=== PATIENT | male | born 1950 | race African-American/Black ===

== ENCOUNTER 2016-04-03 23:13 | Inpatient (IN) | payer MEDICAID ==
[~2016-04-03] VITALS: Ht 175.3 cm; Wt 63.1 kg
[~2016-04-03 23:13] MED LIST: ALBUAER3 IN; FOLI1TAB6 PO; LEVE500T22 PO; METF-314 PO; NAPR-604 PO; PHE100C PO
[2016-04-03] MEDS ORDERED: LORazepam 2MG/ML-1ML VIAL ONE (23:15)
[2016-04-03] MEDS ORDERED: diphenhdrAMINE HCL 50 MG/1 ML VL ONE (23:40)
[2016-04-03] MEDS ORDERED: DIAZEPAM 5 MG/ML 2ML SYRG ONE (23:45)
[2016-04-03 23:56] LABS: Basophils # (auto) 0.1 uL; Basophils % (auto) 1.2 % (0.0-2.0); Eosinophils # (auto) 0.2 uL; Eosinophils % (auto) 2.1 % (0.0-7.0); Hematocrit 42.6 % (41.0-53.0); Hemoglobin 13.2 g/dL (13.5-17.5); Lymphocytes # (auto) 4.4 uL; Mean Corpuscular Hemoglobin 30.5 pg (28.0-32.0); Mean Corpuscular Volume 98.3 fL (80.0-100.0); Mean Platelet Volume 10.3 fL (7.4-10.4); Monocytes # (auto) 0.5 uL; Monocytes % (auto) 5.3 % (0.0-12.0); Neutrophils # (auto) 4.4 uL; Neutrophils % (auto) 45.4 % (37.0-80.0); Platelet Count (auto) 210 10^3/uL (140-450); Red Cell Distribution Width 12.5 % (11.6-16.0); White Blood Cell 9.6 10^3/uL (4.4-10.8)
[2016-04-03] MEDS ORDERED: SODIUM CHLORIDE 0.9% 250 ML IV ONE (23:58)
[2016-04-03] MEDS ORDERED: SODIUM CHLORIDE 0.9% 1,000 ML IV ONE (23:58)
[2016-04-04] MEDS ORDERED: diphenhdrAMINE HCL 50 MG/1 ML VL IV ONE
[2016-04-04] MEDS ORDERED: InsuLIN REG 1unit/0.01ml Soln (100units/ml) IV ONE
[2016-04-04] MEDS ORDERED: LORazepam 2MG/ML-1ML VIAL IV ONE
[2016-04-04 00:11] LABS: Albumin 3.3 g/dL (3.4-5.0); Calcium 8.1 mg/dL (8.5-10.1); Potassium 3.2 mmol/L (3.5-5.1)
[2016-04-04 00:15] LABS: BUN/Creatinine Ratio 4.1; Bilirubin, Total 0.2 mg/dL (0.2-1.0); Total Protein 7.7 g/dL (6.4-8.2)
[2016-04-04] MEDS ORDERED: HALOPERIDOL LACTATE 5 MG/ML INJ VIAL ONE (00:17)
[2016-04-04] MEDS ORDERED: HALOPERIDOL LACTATE 5 MG/ML INJ VIAL IM ONE ×2 (00:30)
[2016-04-04] MEDS ORDERED: DIAZEPAM 5 MG/ML 2ML SYRG IV ONE (01:00)
[2016-04-04 01:36] LABS: Urine RBC None Seen /hpf (0 - 3)
[2016-04-04 01:49] LABS: Urine Bilirubin Negative (Negative); Urine Blood TRACE /uL (Negative); Urine Color Colorless (Yellow); Urine Ketone Negative (Negative); Urine Nitrite Negative (Negative); Urine Urobilinogen Normal (Negative); Urine pH 6.5 (5.0-8.0)
[2016-04-04 01:50] LABS: Urine Glucose 4+ mg/dL (Normal)
[2016-04-04] MEDS ORDERED: POTASSIUM CHL 20MEQ/100ML 100 ML IV ONE (02:15)
[2016-04-04] MEDS: ACCU-CHEK COMFORT CURVE STRIP VI SCH ×5 (03:10→19:32)
[2016-04-04] MEDS ORDERED: ACETAMINOPHEN 325 MG TAB PO PRN (04:00)
[2016-04-04] MEDS ORDERED: ONDANSETRON HCL 4 MG/2 ML VIAL IV PRN (04:00)
[2016-04-04] MEDS ORDERED: LORazepam 0.5 MG TAB PO PRN (04:00)
[2016-04-04] MEDS ORDERED: HYDROcodone-ACET 5/325MG TAB PO PRN (04:00)
[2016-04-04] MEDS ORDERED: DEXTROSE (50%) 50ML SYRG IV PRN (04:00)
[2016-04-04] MEDS ORDERED: ALBUTEROL SULF 2.5 MG/0.5ML(0.5%) NEB SOLN NEB PRN (04:00)
[2016-04-04] MEDS: SODIUM CHLORIDE 0.9% 1,000 ML IV SCH ×2 (04:32→10:52)
[2016-04-04] MEDS: InsuLIN REG 1unit/0.01ml Soln (100units/ml) SC SCH ×5 (05:05→19:50)
[2016-04-04] MEDS: PHENYTOIN SODIUM 100 MG CAP PO SCH ×3 (06:00→22:16)
[2016-04-04 06:50] VITALS: BP 126/66
[2016-04-04] MEDS ORDERED: IPRAAER6 IN (08:52)
[2016-04-04] MEDS ORDERED: METF-489 PO (08:52)
[2016-04-04] MEDS ORDERED: BENA10TA3 PO (08:52)
[2016-04-04] MEDS ORDERED: LEVETIRACETAM 500 MG TAB PO SCH (10:00)
[2016-04-04] MEDS: ENOXAPARIN SOD 40 MG/0.4 ML SYRINGE SC SCH (10:52)
[2016-04-04] MEDS: FOLIC ACID 1 MG TAB PO SCH (10:52)
[2016-04-04] MEDS: FAMOTIDINE 20 MG TAB PO SCH ×2 (10:52→22:16)
[2016-04-04 12:24] LABS: BUN/Creatinine Ratio 5.6; Calcium 7.5 mg/dL (8.5-10.1); Potassium 3.3 mmol/L (3.5-5.1)
[2016-04-04 12:30] VITALS: BP 117/75
[2016-04-04 13:00] VITALS: BP 117/75
[2016-04-04 17:00] VITALS: BP 125/76
[2016-04-04] MEDS ORDERED: PHENYTOIN DILANTIN IV ONE (19:00)
[2016-04-04] MEDS ORDERED: SODIUM CHL 0.9% IV ONE (19:00)
[2016-04-04 21:32] LABS: Temperature: 21.4 C (20.0-25.0)
[2016-04-04] MEDS: POTASSIUM CHL 20 Meq TABLET PO SCH (22:15)
[2016-04-05] MEDS: ACCU-CHEK COMFORT CURVE STRIP VI SCH ×7 (00:13→23:38)
[2016-04-05] MEDS: InsuLIN REG 1unit/0.01ml Soln (100units/ml) SC SCH ×7 (04:45→23:41)
[2016-04-05 06:21] LABS: Basophils # (auto) 0.1 uL; Basophils % (auto) 0.7 % (0.0-2.0); Eosinophils # (auto) 0.3 uL; Eosinophils % (auto) 1.9 % (0.0-7.0); Hematocrit 40.5 % (41.0-53.0); Hemoglobin 12.7 g/dL (13.5-17.5); Lymphocytes # (auto) 5.2 uL; Lymphocytes % (auto) 38.5 % (10.0-50.0); Mean Corpuscular Hemoglobin 30.4 pg (28.0-32.0); Mean Corpuscular Hgb Conc. 31.4 g/dL (32.0-36.0); Mean Corpuscular Volume 96.8 fL (80.0-100.0); Mean Platelet Volume 10.6 fL (7.4-10.4); Monocytes # (auto) 0.6 uL; Monocytes % (auto) 4.4 % (0.0-12.0); Neutrophils # (auto) 7.4 uL; Neutrophils % (auto) 54.5 % (37.0-80.0); Platelet Count (auto) 243 10^3/uL (140-450); Red Cell Distribution Width 13.5 % (11.6-16.0); SUSPECT VIEW TRANSMISSION; White Blood Cell 13.5 10^3/uL (4.4-10.8)
[2016-04-05 06:56] LABS: Albumin 3.2 g/dL (3.4-5.0); BUN/Creatinine Ratio 4.8; Bilirubin, Total 0.2 mg/dL (0.2-1.0); Calcium 8.2 mg/dL (8.5-10.1); Total Protein 7.8 g/dL (6.4-8.2)
[2016-04-05 07:03] LABS: Potassium 2.9 mmol/L (3.5-5.1)
[2016-04-05] MEDS ORDERED: HALOPERIDOL LACTATE 5 MG/ML INJ VIAL IM PRN ×2 (09:00→19:15)
[2016-04-05] MEDS: ENOXAPARIN SOD 40 MG/0.4 ML SYRINGE SC SCH (10:38)
[2016-04-05] MEDS: FOLIC ACID 1 MG TAB PO SCH (10:39)
[2016-04-05] MEDS: POTASSIUM CHL 20 Meq TABLET PO SCH ×2 (10:39→22:04)
[2016-04-05] MEDS: FAMOTIDINE 20 MG TAB PO SCH ×2 (10:39→22:04)
[2016-04-05] MEDS: PHENYTOIN SODIUM 100 MG CAP PO SCH ×2 (10:39→22:04)
[2016-04-05] MEDS: SODIUM CHLORIDE 0.9% 1,000 ML IV SCH (13:12)
[2016-04-05] MEDS ORDERED: HALOPERIDOL LACTATE 5 MG/ML INJ VIAL IM ONE (16:15)
[2016-04-05 22:00] VITALS: BP 169/75
[2016-04-06] MEDS: InsuLIN REG 1unit/0.01ml Soln (100units/ml) SC SCH ×3 (04:00→11:19)
[2016-04-06] MEDS: ACCU-CHEK COMFORT CURVE STRIP VI SCH ×3 (04:15→11:18)
[2016-04-06 05:00] VITALS: BP 149/89
[2016-04-06] MEDS: SODIUM CHLORIDE 0.9% 1,000 ML IV SCH (05:52)
[2016-04-06 06:05] LABS: Basophils # (auto) 0 uL; Basophils % (auto) 0.4 % (0.0-2.0); Eosinophils # (auto) 0.2 uL; Eosinophils % (auto) 1.6 % (0.0-7.0); Hematocrit 41.2 % (41.0-53.0); Hemoglobin 12.9 g/dL (13.5-17.5); Lymphocytes # (auto) 2.9 uL; Lymphocytes % (auto) 28.6 % (10.0-50.0); Mean Corpuscular Hemoglobin 29.9 pg (28.0-32.0); Mean Corpuscular Hgb Conc. 31.3 g/dL (32.0-36.0); Mean Corpuscular Volume 95.7 fL (80.0-100.0); Mean Platelet Volume 10.3 fL (7.4-10.4); Monocytes # (auto) 0.7 uL; Monocytes % (auto) 6.5 % (0.0-12.0); Neutrophils # (auto) 6.5 uL; Neutrophils % (auto) 62.9 % (37.0-80.0); Platelet Count (auto) 245 10^3/uL (140-450); Red Cell Distribution Width 13.4 % (11.6-16.0); SUSPECT VIEW TRANSMISSION; White Blood Cell 10.3 10^3/uL (4.4-10.8)
[2016-04-06 06:40] LABS: Potassium 3.4 mmol/L (3.5-5.1)
[2016-04-06 06:48] LABS: Albumin 3.1 g/dL (3.4-5.0); BUN/Creatinine Ratio 8.4; Calcium 8.4 mg/dL (8.5-10.1)
[2016-04-06 06:51] LABS: Bilirubin, Total 0.2 mg/dL (0.2-1.0); Total Protein 7.2 g/dL (6.4-8.2)
[2016-04-06 08:00] VITALS: BP 159/42
[2016-04-06] MEDS: ENOXAPARIN SOD 40 MG/0.4 ML SYRINGE SC SCH (10:16)
[2016-04-06] MEDS: PHENYTOIN SODIUM 100 MG CAP PO SCH (10:17)
[2016-04-06] MEDS: FOLIC ACID 1 MG TAB PO SCH (10:17)
[2016-04-06] MEDS: POTASSIUM CHL 20 Meq TABLET PO SCH (10:17)
[2016-04-06] MEDS: FAMOTIDINE 20 MG TAB PO SCH (10:17)
[2016-04-06] MEDS ORDERED: POTASSIUM CHL 20 Meq TABLET PO ONE (11:30)
[2016-04-06] MEDS ORDERED: BENAZEPRIL HCL 10 MG TAB PO SCH (12:00)
[2016-04-06 13:29] VITALS: BP 149/89
== END 2016-04-06 14:00 | disposition home or self-care (01) | DRG 53 ==
LOC: EDBD 23:13 → ER 23:18 → OVERFLOW 23:19 → WEST WING 04-04 12:23
PROVIDERS: ADMIT Nurse Practitioner; ATTEND Internal Medicine
DX: G40.909 Epilepsy, unspecified, not intractable, without status epilepticus (principal); E11.42 Type 2 diabetes mellitus with diabetic polyneuropathy; F03.90 Unspecified dementia, unspecified severity, without behavioral disturbance, psychotic disturbance, mood disturbance, and anxiety; E11.65 Type 2 diabetes mellitus with hyperglycemia; E87.8 Other disorders of electrolyte and fluid balance, not elsewhere classified; I10 Essential (primary) hypertension; E87.6 Hypokalemia; E86.0 Dehydration; F12.90 Cannabis use, unspecified, uncomplicated; F17.210 Nicotine dependence, cigarettes, uncomplicated; Z79.899 Other long term (current) drug therapy; Z91.19 Patient's noncompliance with other medical treatment and regimen; Z98.890 Other specified postprocedural states; Z84.89 Family history of other specified conditions; Z87.828 Personal history of other (healed) physical injury and trauma; Z79.84 Long term (current) use of oral hypoglycemic drugs; Z78.1 Physical restraint status
CPT/HCPCS: 36415; 36600; 70450; 71010; 80048; 80053; 80185; 81001; 82140; 82607; 82746; 82805; 82962; 83036; 84439; 84443; 85025; 93005; 94761; 96361; 96372; 96374; 96375; 97001; G0434; J1815; J3480

== ENCOUNTER 2016-05-07 11:00 | Observation (INO) | payer MEDICAID ==
[~2016-05-07] VITALS: Ht 175.3 cm; Wt 68.0 kg
[~2016-05-07 11:00] MED LIST changes: +BENA10TA3 PO; +IPRAAER6 IN; -METF-314 PO; +METF-489 PO
[2016-05-07 16:06] LABS: Basophils # (auto) 0.1 uL; Basophils % (auto) 0.7 % (0.0-2.0); Eosinophils # (auto) 0 uL; Eosinophils % (auto) 0.1 % (0.0-7.0); Hematocrit 44.3 % (41.0-53.0); Hemoglobin 14.6 g/dL (13.5-17.5); Lymphocytes # (auto) 1.3 uL; Lymphocytes % (auto) 8.8 % (10.0-50.0); Mean Corpuscular Hemoglobin 31.2 pg (28.0-32.0); Mean Corpuscular Hgb Conc. 32.9 g/dL (32.0-36.0); Mean Corpuscular Volume 94.8 fL (80.0-100.0); Monocytes # (auto) 0.4 uL; Monocytes % (auto) 2.8 % (0.0-12.0); Neutrophils # (auto) 13.1 uL; Neutrophils % (auto) 87.6 % (37.0-80.0); Platelet Count (auto) 197 10^3/uL (140-450); Red Cell Distribution Width 14.7 % (11.6-16.0); SUSPECT VIEW TRANSMISSION
[2016-05-07 16:16] LABS: Albumin 3.2 g/dL (3.4-5.0); BUN/Creatinine Ratio 19.8; Bilirubin, Total 0.3 mg/dL (0.2-1.0); Calcium 8.3 mg/dL (8.5-10.1); Potassium 4.5 mmol/L (3.5-5.1); Total Protein 8.1 g/dL (6.4-8.2)
[2016-05-08 07:35] VITALS: BP 142/84
[2016-05-08] MEDS ORDERED: PANTOPRAZOLE 40 MG TAB PO ONE (09:00)
[2016-05-08] MEDS ORDERED: cefTRIAXone W LIDOCAINE 1 GM IM IM ONE (09:00)
[2016-05-08 09:22] LABS: Urine Bilirubin Negative (Negative); Urine Color Yellow (Yellow); Urine Glucose Normal (Normal); Urine Ketone TRACE (Negative); Urine Nitrite Negative (Negative); Urine RBC 1 /hpf (0 - 3); Urine Squamous Epithelial Cell FEW /hpf (<5)
[2016-05-08 09:39] LABS: Urine Blood 1+ /uL (Negative)
== END 2016-05-08 09:09 | disposition home or self-care (01) | DRG 282 ==
LOC: ER 11:01 → UNDOADMOB 11:02 → OVERFLOW 11:02 → UNDODISOB 05-08 09:09 → ER 05-08 09:09
PROVIDERS: ADMIT Emergency Medicine; ATTEND Emergency Medicine
DX: K86.1 Other chronic pancreatitis (principal); F03.90 Unspecified dementia, unspecified severity, without behavioral disturbance, psychotic disturbance, mood disturbance, and anxiety; F17.210 Nicotine dependence, cigarettes, uncomplicated; E11.9 Type 2 diabetes mellitus without complications; I10 Essential (primary) hypertension; K29.30 Chronic superficial gastritis without bleeding; I70.8 Atherosclerosis of other arteries
CPT/HCPCS: 36415; 74176; 80053; 81001; 82962; 83690; 85025; 93005; 96372; 99285; G0378; J0696

== ENCOUNTER 2016-05-28 09:24 | Inpatient (IN) | payer MEDICAID ==
[~2016-05-28] VITALS: Ht 175.3 cm; Wt 55.3 kg
[2016-05-28] MEDS ORDERED: GLY5T PO (09:32)
[2016-05-28 10:02] LABS: Urine RBC None Seen /hpf (0 - 3)
[2016-05-28] MEDS ORDERED: SODIUM CHLORIDE 0.9% 1,000 ML IVB ONE (10:15)
[2016-05-28 10:18] LABS: Urine Bilirubin Negative (Negative); Urine Blood Negative /uL (Negative); Urine Color Yellow (Yellow); Urine Glucose Normal (Normal); Urine Granular Cast MANY /lpf (0); Urine Ketone 1+ (Negative); Urine Nitrite Negative (Negative); Urine Squamous Epithelial Cell FEW /hpf (<5); Urine Urobilinogen Normal (Negative); Urine pH 5.5 (5.0-8.0)
[2016-05-28 10:26] LABS: Basophils # (auto) 0 uL; Basophils % (auto) 0.5 % (0.0-2.0); Eosinophils # (auto) 0.1 uL; Eosinophils % (auto) 1.2 % (0.0-7.0); Hematocrit 41.3 % (41.0-53.0); Hemoglobin 13.8 g/dL (13.5-17.5); Lymphocytes # (auto) 2.6 uL; Lymphocytes % (auto) 28.9 % (10.0-50.0); Mean Corpuscular Hemoglobin 30.8 pg (28.0-32.0); Mean Corpuscular Hgb Conc. 33.3 g/dL (32.0-36.0); Mean Corpuscular Volume 92.5 fL (80.0-100.0); Mean Platelet Volume 8.6 fL (7.4-10.4); Monocytes # (auto) 0.4 uL; Neutrophils # (auto) 5.7 uL; Neutrophils % (auto) 64.4 % (37.0-80.0); Platelet Count (auto) 307 10^3/uL (140-450); Red Cell Distribution Width 15.3 % (11.6-16.0); White Blood Cell 8.9 10^3/uL (4.4-10.8)
[2016-05-28 10:45] LABS: Albumin 3.3 g/dL (3.4-5.0); BUN/Creatinine Ratio 25.1; Bilirubin, Total 0.4 mg/dL (0.2-1.0); Calcium 6.9 mg/dL (8.5-10.1); Magnesium 1.3 mg/dL (1.6-2.6); Total Protein 7.4 g/dL (6.4-8.2)
[2016-05-28] MEDS: MAGNESIUM SULFATE 1GM/100ML 100 ML IV SCH ×2 (11:54→13:00)
[2016-05-28] MEDS ORDERED: BENA20TA4 (14:21)
[2016-05-28] MEDS ORDERED: LEVE500T3 (14:21)
[2016-05-28] MEDS ORDERED: METF-316 (14:21)
[2016-05-28] MEDS ORDERED: GLYB5TAB8 (14:21)
[2016-05-28] MEDS ORDERED: ALBU18 IN (14:21)
[2016-05-28] MEDS ORDERED: PANT40T (14:21)
[2016-05-28] MEDS ORDERED: NAP500T (14:21)
[2016-05-28] MEDS ORDERED: NAPROXEN 500 MG TAB PO PRN (14:45)
[2016-05-28] MEDS ORDERED: LORazepam 2MG/ML-1ML VIAL IV PRN (14:45)
[2016-05-28] MEDS ORDERED: DEXTROSE (50%) 50ML SYRG IV PRN (14:45)
[2016-05-28] MEDS ORDERED: PANTOPRAZOLE 40 MG TAB PO ONE (15:00)
[2016-05-28] MEDS ORDERED: ACETAMINOPHEN 325 MG TAB PO PRN (15:00)
[2016-05-28] MEDS ORDERED: LORazepam 0.5 MG TAB PO PRN (15:00)
[2016-05-28] MEDS ORDERED: ZOLPIDEM TARTRATE 5 MG TAB PO PRN (15:00)
[2016-05-28] MEDS ORDERED: NITROGLYCERIN 0.4 MG SL TAB SL PRN ×2 (15:00)
[2016-05-28] MEDS ORDERED: PHENYTOIN SODIUM 100 MG CAP PO ONE (15:00)
[2016-05-28] MEDS ORDERED: ONDANSETRON HCL 4 MG/2 ML VIAL IV PRN (15:00)
[2016-05-28] MEDS ORDERED: ALUM & MAG HYDROX-SIMETH LIQ(MAALOX) 30 ML PO PRN (15:00)
[2016-05-28] MEDS ORDERED: MORPHINE SULF INJ 2 MG/ML SYRINGE 1ML IV PRN ×2 (15:00)
[2016-05-28] MEDS ORDERED: FOLIC ACID 1 MG TAB PO ONE (15:00)
[2016-05-28] MEDS ORDERED: ASPirin 81 mg TAB PO ONE (15:30)
[2016-05-28] MEDS: LEVETIRACETAM 500 MG TAB PO SCH ×2 (15:30→21:53)
[2016-05-28] MEDS ORDERED: CLOPIDOGREL BISULFATE 75 MG TAB PO ONE (15:30)
[2016-05-28] MEDS ORDERED: CARVEDILOL 3.125 MG TAB PO ONE (15:30)
[2016-05-28] MEDS ORDERED: DOCUSATE SOD 100 MG CAP PO ONE (15:30)
[2016-05-28 16:00] VITALS: BP 129/76
[2016-05-28] MEDS: ACCU-CHEK COMFORT CURVE STRIP VI SCH ×2 (17:00→21:54)
[2016-05-28] MEDS: InsuLIN REG 1unit/0.01ml Soln (100units/ml) SC SCH ×2 (17:00→21:54)
[2016-05-28] MEDS: glyBURIDE 5 MG TAB PO SCH (17:50)
[2016-05-28 20:00] VITALS: BP 103/69
[2016-05-28] MEDS: DEXTROSE 10% 1,000 ML IV SCH (20:05)
[2016-05-28] MEDS: CEPHALEXIN 250 MG CAP PO SCH (20:05)
[2016-05-28] MEDS: metroNIDAZOLE 500 MG TAB PO SCH (20:05)
[2016-05-28 20:32] LABS: B-Type Natriuretic Peptide 48.48 pg/mL (0-100); Temperature: 23.4 C (20.0-25.0)
[2016-05-28] MEDS: SODIUM CHLOR 0.9% PF (SALINE LOCK) 10ML VIAL IV SCH (21:52)
[2016-05-28] MEDS: PHENYTOIN SODIUM 100 MG CAP PO SCH (21:52)
[2016-05-28] MEDS: ATORVASTATIN 20 MG TAB PO SCH (21:53)
[2016-05-28] MEDS: CARVEDILOL 3.125 MG TAB PO SCH (21:54)
[2016-05-29] VITALS: BP 120/80
[2016-05-29 04:00] VITALS: BP 123/82
[2016-05-29] MEDS: CEPHALEXIN 250 MG CAP PO SCH ×4 (06:00→17:35)
[2016-05-29 06:46] LABS: Basophils # (auto) 0.1 uL; Basophils % (auto) 0.8 % (0.0-2.0); Eosinophils # (auto) 0.1 uL; Eosinophils % (auto) 1.4 % (0.0-7.0); Hematocrit 39.3 % (41.0-53.0); Lymphocytes # (auto) 2.9 uL; Mean Corpuscular Hemoglobin 30.5 pg (28.0-32.0); Mean Corpuscular Volume 92.4 fL (80.0-100.0); Mean Platelet Volume 9.2 fL (7.4-10.4); Monocytes # (auto) 0.4 uL; Monocytes % (auto) 5.2 % (0.0-12.0); Neutrophils # (auto) 4.1 uL; Neutrophils % (auto) 54.6 % (37.0-80.0); Platelet Count (auto) 262 10^3/uL (140-450); Red Cell Distribution Width 15.1 % (11.6-16.0); White Blood Cell 7.5 10^3/uL (4.4-10.8)
[2016-05-29] MEDS: PHENYTOIN SODIUM 100 MG CAP PO SCH ×3 (06:50→22:30)
[2016-05-29] MEDS: metroNIDAZOLE 500 MG TAB PO SCH ×4 (06:50→17:34)
[2016-05-29] MEDS: glyBURIDE 5 MG TAB PO SCH ×2 (06:50→17:34)
[2016-05-29] MEDS: SODIUM CHLOR 0.9% PF (SALINE LOCK) 10ML VIAL IV SCH ×3 (06:50→22:29)
[2016-05-29] MEDS: InsuLIN REG 1unit/0.01ml Soln (100units/ml) SC SCH ×4 (07:00→22:00)
[2016-05-29] MEDS: ACCU-CHEK COMFORT CURVE STRIP VI SCH ×4 (07:20→22:00)
[2016-05-29 07:22] LABS: BUN/Creatinine Ratio 25.7; Bilirubin, Total 0.3 mg/dL (0.2-1.0); Calcium 7.2 mg/dL (8.5-10.1); Magnesium 1.8 mg/dL (1.6-2.6); Potassium 5.1 mmol/L (3.5-5.1); Total Protein 6.8 g/dL (6.4-8.2)
[2016-05-29 07:50] VITALS: BP 127/85
[2016-05-29] MEDS: DOCUSATE SOD 100 MG CAP PO SCH (09:44)
[2016-05-29] MEDS: ENALAPRIL MALEATE 2.5 MG TAB PO SCH ×2 (09:49→22:31)
[2016-05-29] MEDS: PANTOPRAZOLE 40 MG TAB PO SCH (09:53)
[2016-05-29] MEDS: CARVEDILOL 3.125 MG TAB PO SCH ×2 (09:54→22:31)
[2016-05-29] MEDS: FOLIC ACID 1 MG TAB PO SCH (09:54)
[2016-05-29] MEDS: LEVETIRACETAM 500 MG TAB PO SCH ×2 (09:54→22:30)
[2016-05-29] MEDS: ASPirin 81 mg TAB PO SCH (09:54)
[2016-05-29] MEDS: CLOPIDOGREL BISULFATE 75 MG TAB PO SCH (09:54)
[2016-05-29] MEDS ORDERED: BENAZEPRIL HCL 10 MG TAB PO SCH ×2 (10:00)
[2016-05-29] MEDS ORDERED: ADENOSINE 47 MG in GIVE UN-DILUTED 0 ML IV ONE (10:45)
[2016-05-29] MEDS: DEXTROSE 10% 1,000 ML IV SCH (14:15)
[2016-05-29 16:00] VITALS: BP 126/85
[2016-05-29] MEDS: ATORVASTATIN 20 MG TAB PO SCH (22:30)
[2016-05-30] MEDS: metroNIDAZOLE 500 MG TAB PO SCH ×2 (00:37→06:04)
[2016-05-30] MEDS: CEPHALEXIN 250 MG CAP PO SCH ×2 (00:37→06:04)
[2016-05-30 05:28] VITALS: BP 120/75
[2016-05-30] MEDS: DEXTROSE 10% 1,000 ML IV SCH (06:02)
[2016-05-30] MEDS: SODIUM CHLOR 0.9% PF (SALINE LOCK) 10ML VIAL IV SCH ×3 (06:03→22:44)
[2016-05-30] MEDS: PHENYTOIN SODIUM 100 MG CAP PO SCH ×3 (06:03→22:44)
[2016-05-30 06:13] LABS: Basophils # (auto) 0.1 uL; Basophils % (auto) 0.8 % (0.0-2.0); Eosinophils # (auto) 0.1 uL; Eosinophils % (auto) 1.6 % (0.0-7.0); Hematocrit 40.1 % (41.0-53.0); Hemoglobin 13.2 g/dL (13.5-17.5); Lymphocytes # (auto) 3.2 uL; Lymphocytes % (auto) 43.8 % (10.0-50.0); Mean Corpuscular Hemoglobin 30.5 pg (28.0-32.0); Mean Corpuscular Hgb Conc. 32.9 g/dL (32.0-36.0); Mean Corpuscular Volume 92.7 fL (80.0-100.0); Mean Platelet Volume 8.9 fL (7.4-10.4); Monocytes # (auto) 0.5 uL; Monocytes % (auto) 6.7 % (0.0-12.0); Neutrophils # (auto) 3.4 uL; Neutrophils % (auto) 47.1 % (37.0-80.0); Platelet Count (auto) 260 10^3/uL (140-450); Red Cell Distribution Width 15.3 % (11.6-16.0); SUSPECT VIEW TRANSMISSION; White Blood Cell 7.3 10^3/uL (4.4-10.8)
[2016-05-30] MEDS: glyBURIDE 5 MG TAB PO SCH ×2 (06:37→18:00)
[2016-05-30] MEDS: ACCU-CHEK COMFORT CURVE STRIP VI SCH ×4 (06:37→22:00)
[2016-05-30] MEDS: InsuLIN REG 1unit/0.01ml Soln (100units/ml) SC SCH ×4 (06:37→22:00)
[2016-05-30 06:50] LABS: BUN/Creatinine Ratio 21.8; Bilirubin, Total 0.3 mg/dL (0.2-1.0); Calcium 7.8 mg/dL (8.5-10.1); Potassium 4.6 mmol/L (3.5-5.1); Total Protein 6.8 g/dL (6.4-8.2)
[2016-05-30 08:00] VITALS: BP 113/77
[2016-05-30] MEDS: DOCUSATE SOD 100 MG CAP PO SCH (09:46)
[2016-05-30] MEDS: PANTOPRAZOLE 40 MG TAB PO SCH ×2 (09:48→22:43)
[2016-05-30] MEDS: CLOPIDOGREL BISULFATE 75 MG TAB PO SCH (09:48)
[2016-05-30] MEDS: ASPirin 81 mg TAB PO SCH (09:48)
[2016-05-30] MEDS: LEVETIRACETAM 500 MG TAB PO SCH ×2 (09:48→22:44)
[2016-05-30] MEDS: FOLIC ACID 1 MG TAB PO SCH (09:48)
[2016-05-30] MEDS: ENALAPRIL MALEATE 2.5 MG TAB PO SCH ×2 (09:49→22:45)
[2016-05-30] MEDS: CARVEDILOL 3.125 MG TAB PO SCH ×2 (09:49→22:45)
[2016-05-30 12:00] VITALS: BP 112/76
[2016-05-30 16:00] VITALS: BP 125/84
[2016-05-30 20:00] VITALS: BP 113/73
[2016-05-30] MEDS: ATORVASTATIN 20 MG TAB PO SCH (22:44)
[2016-05-31 05:30] VITALS: BP 106/81
[2016-05-31 05:48] LABS: Basophils # (auto) 0.1 uL; Basophils % (auto) 0.9 % (0.0-2.0); Eosinophils # (auto) 0.1 uL; Hematocrit 38.3 % (41.0-53.0); Hemoglobin 12.5 g/dL (13.5-17.5); Lymphocytes # (auto) 3.4 uL; Lymphocytes % (auto) 46.4 % (10.0-50.0); Mean Corpuscular Hemoglobin 30.7 pg (28.0-32.0); Mean Corpuscular Hgb Conc. 32.6 g/dL (32.0-36.0); Mean Corpuscular Volume 94.2 fL (80.0-100.0); Mean Platelet Volume 8.9 fL (7.4-10.4); Monocytes # (auto) 0.4 uL; Monocytes % (auto) 6.1 % (0.0-12.0); Neutrophils # (auto) 3.2 uL; Neutrophils % (auto) 44.6 % (37.0-80.0); Platelet Count (auto) 229 10^3/uL (140-450); Red Cell Distribution Width 14.9 % (11.6-16.0); White Blood Cell 7.3 10^3/uL (4.4-10.8)
[2016-05-31] MEDS: SODIUM CHLOR 0.9% PF (SALINE LOCK) 10ML VIAL IV SCH ×3 (06:02→22:20)
[2016-05-31] MEDS: DEXTROSE 10% 1,000 ML IV SCH (06:02)
[2016-05-31] MEDS: PHENYTOIN SODIUM 100 MG CAP PO SCH ×3 (06:25→23:03)
[2016-05-31] MEDS: glyBURIDE 5 MG TAB PO SCH ×2 (06:25→18:00)
[2016-05-31] MEDS: InsuLIN REG 1unit/0.01ml Soln (100units/ml) SC SCH ×4 (06:25→23:04)
[2016-05-31] MEDS: ACCU-CHEK COMFORT CURVE STRIP VI SCH ×4 (06:26→23:04)
[2016-05-31] MEDS: DOCUSATE SOD 100 MG CAP PO SCH (08:58)
[2016-05-31] MEDS: CLOPIDOGREL BISULFATE 75 MG TAB PO SCH (08:58)
[2016-05-31] MEDS: ENALAPRIL MALEATE 2.5 MG TAB PO SCH ×2 (08:58→23:05)
[2016-05-31] MEDS: LEVETIRACETAM 500 MG TAB PO SCH ×2 (08:58→23:03)
[2016-05-31] MEDS: PANTOPRAZOLE 40 MG TAB PO SCH ×2 (08:59→23:03)
[2016-05-31 09:00] VITALS: BP 131/89
[2016-05-31] MEDS: CARVEDILOL 3.125 MG TAB PO SCH ×2 (09:00→23:03)
[2016-05-31] MEDS: ASPirin 81 mg TAB PO SCH (09:00)
[2016-05-31] MEDS: FOLIC ACID 1 MG TAB PO SCH (09:00)
[2016-05-31 13:00] VITALS: BP 112/85
[2016-05-31 16:48] VITALS: BP 117/83
[2016-05-31 22:00] VITALS: BP 109/71
[2016-05-31] MEDS: ATORVASTATIN 20 MG TAB PO SCH (23:03)
[2016-06-01] MEDS: DEXTROSE 10% 1,000 ML IV SCH ×2 (05:15→20:46)
[2016-06-01] MEDS: SODIUM CHLOR 0.9% PF (SALINE LOCK) 10ML VIAL IV SCH ×3 (05:15→20:32)
[2016-06-01] MEDS: PHENYTOIN SODIUM 100 MG CAP PO SCH ×3 (05:16→20:31)
[2016-06-01] MEDS: glyBURIDE 5 MG TAB PO SCH ×2 (05:16→18:45)
[2016-06-01] MEDS: InsuLIN REG 1unit/0.01ml Soln (100units/ml) SC SCH ×4 (05:17→20:42)
[2016-06-01] MEDS: ACCU-CHEK COMFORT CURVE STRIP VI SCH ×4 (05:18→20:42)
[2016-06-01 05:30] VITALS: BP 107/70
[2016-06-01 05:52] LABS: Basophils # (auto) 0 uL; Basophils % (auto) 0.6 % (0.0-2.0); Eosinophils # (auto) 0.2 uL; Eosinophils % (auto) 2.6 % (0.0-7.0); Hematocrit 37.5 % (41.0-53.0); Hemoglobin 12.2 g/dL (13.5-17.5); Lymphocytes # (auto) 3.9 uL; Lymphocytes % (auto) 47.8 % (10.0-50.0); Mean Corpuscular Hemoglobin 30.4 pg (28.0-32.0); Mean Corpuscular Hgb Conc. 32.5 g/dL (32.0-36.0); Mean Corpuscular Volume 93.7 fL (80.0-100.0); Mean Platelet Volume 9.4 fL (7.4-10.4); Monocytes # (auto) 0.4 uL; Monocytes % (auto) 5.4 % (0.0-12.0); Neutrophils # (auto) 3.5 uL; Neutrophils % (auto) 43.6 % (37.0-80.0); Platelet Count (auto) 210 10^3/uL (140-450); Red Cell Distribution Width 15.3 % (11.6-16.0); White Blood Cell 8.1 10^3/uL (4.4-10.8)
[2016-06-01 06:23] LABS: Albumin 2.9 g/dL (3.4-5.0); BUN/Creatinine Ratio 16.4; Bilirubin, Total 0.2 mg/dL (0.2-1.0); Calcium 7.7 mg/dL (8.5-10.1); Potassium 4.4 mmol/L (3.5-5.1); Total Protein 6.5 g/dL (6.4-8.2)
[2016-06-01 06:40] LABS: INR 1.36 (0.9-1.15); Prothrombin Time 14.7 sec (9.37-12.3)
[2016-06-01 09:00] VITALS: BP 104/71
[2016-06-01] MEDS: DOCUSATE SOD 100 MG CAP PO SCH ×2 (10:00→10:24)
[2016-06-01] MEDS: ENALAPRIL MALEATE 2.5 MG TAB PO SCH ×2 (10:00→20:31)
[2016-06-01] MEDS: FOLIC ACID 1 MG TAB PO SCH (10:24)
[2016-06-01] MEDS: LEVETIRACETAM 500 MG TAB PO SCH ×2 (10:24→20:31)
[2016-06-01] MEDS: CLOPIDOGREL BISULFATE 75 MG TAB PO SCH (10:25)
[2016-06-01] MEDS: PANTOPRAZOLE 40 MG TAB PO SCH ×2 (10:25→20:31)
[2016-06-01] MEDS: CARVEDILOL 3.125 MG TAB PO SCH ×2 (10:25→20:32)
[2016-06-01] MEDS: ASPirin 81 mg TAB PO SCH (10:26)
[2016-06-01] MEDS ORDERED: LIDOCAINE 2%HCL (LOCAL ANESTH.) INJ 20ML MDV ONE (12:33)
[2016-06-01] MEDS ORDERED: IODIXANOL 320MG/ML 100ML BTL IV ONE (12:33)
[2016-06-01 13:00] VITALS: BP 115/71
[2016-06-01] MEDS ORDERED: ANGIOMAX 250 MG VIAL IV ONE (15:32)
[2016-06-01] MEDS ORDERED: VERAPAMIL 2.5MG/ML INJ 2ML VIAL IV ONE (15:33)
[2016-06-01] MEDS ORDERED: MIDAZOLAM HCL 1MG/1ML-2 ML VIAL ONE (15:33)
[2016-06-01] MEDS ORDERED: fentaNYL CITRATE 100 MCG/2 ML VL ONE (15:33)
[2016-06-01] MEDS ORDERED: SODIUM CHL 0.9% 50 ML ONE (15:33)
[2016-06-01] MEDS ORDERED: CLOPIDOGREL BISULFATE 75 MG TAB PO ONE (17:15)
[2016-06-01] MEDS ORDERED: HYDROmorphone HCL 2 MG/ML VL IV ONE (17:15)
[2016-06-01] MEDS: ATORVASTATIN 20 MG TAB PO SCH (20:30)
[2016-06-01 21:33] VITALS: BP 124/78
[2016-06-02 04:42] VITALS: BP 104/69
[2016-06-02] MEDS: SODIUM CHLOR 0.9% PF (SALINE LOCK) 10ML VIAL IV SCH ×2 (06:00→14:00)
[2016-06-02] MEDS: PHENYTOIN SODIUM 100 MG CAP PO SCH ×2 (06:00→14:26)
[2016-06-02] MEDS: glyBURIDE 5 MG TAB PO SCH (06:04)
[2016-06-02] MEDS: ACCU-CHEK COMFORT CURVE STRIP VI SCH ×2 (06:04→11:37)
[2016-06-02] MEDS: InsuLIN REG 1unit/0.01ml Soln (100units/ml) SC SCH ×2 (06:51→11:37)
[2016-06-02 09:00] VITALS: BP 110/68
[2016-06-02] MEDS: DOCUSATE SOD 100 MG CAP PO SCH ×2 (10:00→10:33)
[2016-06-02] MEDS: FOLIC ACID 1 MG TAB PO SCH (10:33)
[2016-06-02] MEDS: ASPirin 81 mg TAB PO SCH (10:33)
[2016-06-02] MEDS: LEVETIRACETAM 500 MG TAB PO SCH (10:34)
[2016-06-02] MEDS: ENALAPRIL MALEATE 2.5 MG TAB PO SCH (10:34)
[2016-06-02] MEDS: PANTOPRAZOLE 40 MG TAB PO SCH (10:34)
[2016-06-02] MEDS: CLOPIDOGREL BISULFATE 75 MG TAB PO SCH (10:34)
[2016-06-02] MEDS: CARVEDILOL 3.125 MG TAB PO SCH (10:35)
[2016-06-02 13:00] VITALS: BP 118/73
[2016-06-02 13:27] VITALS: BP 110/68
== END 2016-06-02 18:32 | disposition home or self-care (01) | DRG 174 ==
LOC: ER 09:24 → TELE 09:25 → DOU IN ICU 16:35 → TELE-CENTR 05-30 23:45
PROVIDERS: ADMIT Internal Medicine; ATTEND Internal Medicine
PROC: 027035Z Dilation of Coronary Artery, One Artery with Two Drug-eluting Intraluminal Devices, Percutaneous Approach (ICD-10-PCS; principal; 2016-06-01)
PROC: 4A023N7 Measurement of Cardiac Sampling and Pressure, Left Heart, Percutaneous Approach (ICD-10-PCS; 2016-06-01)
PROC: B2111ZZ Fluoroscopy of Multiple Coronary Arteries using Low Osmolar Contrast (ICD-10-PCS; 2016-06-01)
PROC: B2151ZZ Fluoroscopy of Left Heart using Low Osmolar Contrast (ICD-10-PCS; 2016-06-01)
DX: I21.4 Non-ST elevation (NSTEMI) myocardial infarction (principal); N17.0 Acute kidney failure with tubular necrosis; I47.2 Ventricular tachycardia; E11.21 Type 2 diabetes mellitus with diabetic nephropathy; R13.10 Dysphagia, unspecified; E44.1 Mild protein-calorie malnutrition; F03.90 Unspecified dementia, unspecified severity, without behavioral disturbance, psychotic disturbance, mood disturbance, and anxiety; I13.10 Hypertensive heart and chronic kidney disease without heart failure, with stage 1 through stage 4 chronic kidney disease, or unspecified chronic kidney disease; E83.42 Hypomagnesemia; N18.3 Chronic kidney disease, stage 3 (moderate); G40.909 Epilepsy, unspecified, not intractable, without status epilepticus; J44.9 Chronic obstructive pulmonary disease, unspecified; E11.22 Type 2 diabetes mellitus with diabetic chronic kidney disease; E83.51 Hypocalcemia; F17.210 Nicotine dependence, cigarettes, uncomplicated; Z79.02 Long term (current) use of antithrombotics/antiplatelets; Z68.1 Body mass index [BMI] 19.9 or less, adult
CPT/HCPCS: 36415; 70450; 71020; 78452; 80053; 80061; 80320; 81001; 82962; 83036; 83735; 83880; 84443; 84484; 85025; 85610; 87081; 93005; 93017; 93306; 96361; 96365; 96366; 97001; 99152; C1874; G0434; J0153; J1815; J2250; Q9967

== ENCOUNTER 2016-07-06 15:04 | Inpatient (IN) | payer MEDICAID ==
[~2016-07-06] VITALS: Ht 177.8 cm; Wt 64.8 kg
[~2016-07-06 15:04] MED LIST changes: +ALBU18 IN; +BENA20TA4; +GLY5T PO; +GLYB5TAB8; +LEVE500T3; +METF-316; +NAP500T; +PANT40T
[2016-07-06 16:17] LABS: Basophils # (auto) 0 uL; Basophils % (auto) 0.3 % (0.0-2.0); Eosinophils # (auto) 0.1 uL; Eosinophils % (auto) 1.1 % (0.0-7.0); Hemoglobin 9.5 g/dL (13.5-17.5); Lymphocytes # (auto) 1.8 uL; Lymphocytes % (auto) 27.6 % (10.0-50.0); Mean Corpuscular Hgb Conc. 33.8 g/dL (32.0-36.0); Mean Corpuscular Volume 91.8 fL (80.0-100.0); Mean Platelet Volume 8.6 fL (7.4-10.4); Monocytes # (auto) 0.3 uL; Monocytes % (auto) 4.3 % (0.0-12.0); Neutrophils # (auto) 4.3 uL; Neutrophils % (auto) 66.7 % (37.0-80.0); Platelet Count (auto) 225 10^3/uL (140-450); Red Cell Distribution Width 16.3 % (11.6-16.0); White Blood Cell 6.4 10^3/uL (4.4-10.8)
[2016-07-06 16:24] LABS: Albumin 2.4 g/dL (3.4-5.0); Calcium 7.7 mg/dL (8.5-10.1)
[2016-07-06 16:26] LABS: BUN/Creatinine Ratio 31.9
[2016-07-06 16:30] LABS: Bilirubin, Total 0.3 mg/dL (0.2-1.0); Total Protein 6.2 g/dL (6.4-8.2)
[2016-07-06 16:39] LABS: Potassium 6.7 mmol/L (3.5-5.1)
[2016-07-06] MEDS ORDERED: SODIUM BICARBONATE 8.4% INJ 50ML SYRINGE IV ONE (16:45)
[2016-07-06] MEDS ORDERED: DEXTROSE (50%) 50ML SYRG IV ONE ×2 (16:45→23:45)
[2016-07-06] MEDS ORDERED: InsuLIN REG 1unit/0.01ml Soln (100units/ml) IV ONE ×2 (16:45→23:45)
[2016-07-06] MEDS ORDERED: ALBUTEROL SULF 2.5 MG/0.5ML(0.5%) NEB SOLN HHN ONE (16:45)
[2016-07-06] MEDS ORDERED: D5W/SOD CHLO 0.9% 1,000 ML IV ONE (16:45)
[2016-07-06] MEDS ORDERED: CALCIUM GLUC 4.65 MEQ/10ML 4.65 MEQ in SODIUM CHL 0.9% 50 ML IV ONE ×2 (16:45→23:45)
[2016-07-06] MEDS ORDERED: SODIUM POLYSTYRENE SULF 15GM/60ML SUSP PR ONE (16:45)
[2016-07-06] MEDS ORDERED: SODIUM CHLORIDE 0.9% 1,000 ML IV SCH (18:29)
[2016-07-06] MEDS ORDERED: MORPHINE SULF INJ 2 MG/ML SYRINGE 1ML IV PRN ×2 (18:30)
[2016-07-06] MEDS ORDERED: NITROGLYCERIN 0.4 MG SL TAB SL PRN (18:30)
[2016-07-06] MEDS ORDERED: DEXTROSE (50%) 50ML SYRG IV PRN (18:30)
[2016-07-06] MEDS ORDERED: HYDROcodone-ACET 5/325MG TAB PO PRN (18:30)
[2016-07-06] MEDS ORDERED: LORazepam 0.5 MG TAB PO PRN (18:30)
[2016-07-06] MEDS ORDERED: ACETAMINOPHEN 500 MG TAB PO PRN (18:30)
[2016-07-06] MEDS ORDERED: PROMETHAZINE HCL 25 MG/ML 1ML IV PRN (18:30)
[2016-07-06] MEDS ORDERED: LACTULOSE 20Gm/30ML SOLN PO PRN (18:30)
[2016-07-06] MEDS: PANTOPRAZOLE 40 MG TAB PO SCH (18:45)
[2016-07-06] MEDS: ENOXAPARIN SOD 30 MG/0.3 ML SYRINGE SC SCH (18:45)
[2016-07-06 21:30] LABS: BUN/Creatinine Ratio 30.6; Calcium 7.8 mg/dL (8.5-10.1)
[2016-07-06 21:33] LABS: Lactic Acid w/Reflex 3.2 mmol/L (0.4-2.0)
[2016-07-06 21:45] LABS: Potassium 5.8 mmol/L (3.5-5.1)
[2016-07-06] MEDS: ACCU-CHEK COMFORT CURVE STRIP VI SCH (22:00)
[2016-07-06 22:07] LABS: REFLEX LACTIC ACID YES OR NO YES
[2016-07-06] MEDS ORDERED: SODIUM POLYSTYRENE SULF 15GM/60ML SUSP PO ONE (23:45)
[2016-07-06] MEDS ORDERED: SODIUM BICARBONATE 8.4 % INJ 50ML VIAL IV ONE (23:45)
[2016-07-07] MEDS: ACCU-CHEK COMFORT CURVE STRIP VI SCH ×6 (01:31→21:13)
[2016-07-07] MEDS: D5W/SOD CHLO 0.9% 1,000 ML IV SCH ×4 (03:38→20:08)
[2016-07-07 04:18] LABS: Basophils # (auto) 0 uL; Basophils % (auto) 0.2 % (0.0-2.0); Eosinophils # (auto) 0.1 uL; Eosinophils % (auto) 1.2 % (0.0-7.0); Hematocrit 30.5 % (41.0-53.0); Hemoglobin 10.3 g/dL (13.5-17.5); Lymphocytes # (auto) 1.9 uL; Lymphocytes % (auto) 27.2 % (10.0-50.0); Mean Corpuscular Hemoglobin 31.1 pg (28.0-32.0); Mean Corpuscular Hgb Conc. 33.8 g/dL (32.0-36.0); Mean Corpuscular Volume 92.1 fL (80.0-100.0); Mean Platelet Volume 8.6 fL (7.4-10.4); Monocytes # (auto) 0.4 uL; Monocytes % (auto) 5.5 % (0.0-12.0); Neutrophils # (auto) 4.5 uL; Neutrophils % (auto) 65.9 % (37.0-80.0); Platelet Count (auto) 233 10^3/uL (140-450); Red Cell Distribution Width 16.4 % (11.6-16.0); White Blood Cell 6.9 10^3/uL (4.4-10.8)
[2016-07-07 04:37] LABS: Albumin 2.7 g/dL (3.4-5.0); BUN/Creatinine Ratio 31.5; Bilirubin, Total 0.3 mg/dL (0.2-1.0); Calcium 7.8 mg/dL (8.5-10.1); Potassium 4.8 mmol/L (3.5-5.1); Total Protein 6.4 g/dL (6.4-8.2)
[2016-07-07] MEDS: InsuLIN REG 1unit/0.01ml Soln (100units/ml) SC SCH ×5 (06:00→23:12)
[2016-07-07 08:30] VITALS: BP 126/75
[2016-07-07] MEDS: PANTOPRAZOLE 40 MG TAB PO SCH (10:45)
[2016-07-07 12:59] VITALS: BP 126/68
[2016-07-07 13:16] VITALS: BP 126/75
[2016-07-07 16:22] VITALS: BP 111/68
[2016-07-07] MEDS: ENOXAPARIN SOD 30 MG/0.3 ML SYRINGE SC SCH (17:50)
[2016-07-07 20:00] VITALS: BP 118/70
[2016-07-07] MEDS: TEMAZEPAM 15 MG CAP PO PRN (21:13)
[2016-07-07 22:00] VITALS: BP 118/70
[2016-07-08] VITALS (7 sets, daily range): BP systolic 118–127; BP diastolic 69–74
[2016-07-08] MEDS: ACCU-CHEK COMFORT CURVE STRIP VI SCH ×6 (02:00→21:36)
[2016-07-08] MEDS: D5W/SOD CHLO 0.9% 1,000 ML IV SCH (04:03)
[2016-07-08] MEDS: InsuLIN REG 1unit/0.01ml Soln (100units/ml) SC SCH ×4 (06:00→23:38)
[2016-07-08 06:17] LABS: BUN/Creatinine Ratio 29.7; Calcium 7.3 mg/dL (8.5-10.1); Potassium 4.7 mmol/L (3.5-5.1)
[2016-07-08] MEDS: PANTOPRAZOLE 40 MG TAB PO SCH (10:34)
[2016-07-08] MEDS: SODIUM BICARBONATE 50ML VIAL 50 ML in SOD CHL 0.45% 1,000 ML IV SCH ×2 (11:45→22:51)
[2016-07-08 13:25] LABS: Urine Bilirubin Negative (Negative); Urine Blood Negative /uL (Negative); Urine Color Yellow (Yellow); Urine Glucose Normal (Normal); Urine Ketone Negative (Negative); Urine Mucus FEW (None Seen); Urine Nitrite Negative (Negative); Urine RBC <1 /hpf (0 - 3); Urine Squamous Epithelial Cell FEW /hpf (<5); Urine Urobilinogen Normal (Negative)
[2016-07-08] MEDS ORDERED: VITAMINS A & D (TOPICAL) OINT 5GM TOP ONE (15:30)
[2016-07-08] MEDS: ALBUMIN 25% 100 ML IV SCH ×2 (16:42→21:36)
[2016-07-08] MEDS: ENOXAPARIN SOD 30 MG/0.3 ML SYRINGE SC SCH (18:10)
[2016-07-09] MEDS: ACCU-CHEK COMFORT CURVE STRIP VI SCH ×4 (02:00→18:00)
[2016-07-09] MEDS: ALBUMIN 25% 100 ML IV SCH (05:12)
[2016-07-09] MEDS: InsuLIN REG 1unit/0.01ml Soln (100units/ml) SC SCH ×3 (06:00→18:39)
[2016-07-09 06:39] VITALS: BP 118/66
[2016-07-09 06:57] LABS: Albumin 2.9 g/dL (3.4-5.0); BUN/Creatinine Ratio 25.2; Bilirubin, Total 0.2 mg/dL (0.2-1.0); Calcium 7.1 mg/dL (8.5-10.1); Potassium 4.7 mmol/L (3.5-5.1); Total Protein 5.7 g/dL (6.4-8.2)
[2016-07-09 08:00] VITALS: BP 118/66
[2016-07-09] MEDS: PANTOPRAZOLE 40 MG TAB PO SCH (10:46)
[2016-07-09] MEDS: SODIUM BICARBONATE 50ML VIAL 50 ML in SOD CHL 0.45% 1,000 ML IV SCH ×2 (11:03→19:15)
[2016-07-09 13:28] VITALS: BP 127/72
[2016-07-09 17:24] VITALS: BP 120/70
[2016-07-09] MEDS: ENOXAPARIN SOD 30 MG/0.3 ML SYRINGE SC SCH (18:35)
[2016-07-09 21:30] VITALS: BP 119/67
[2016-07-10] MEDS: ACCU-CHEK COMFORT CURVE STRIP VI SCH ×4 (00:12→18:13)
[2016-07-10] MEDS: TEMAZEPAM 15 MG CAP PO PRN (00:13)
[2016-07-10 04:49] VITALS: BP 127/72
[2016-07-10] MEDS: InsuLIN REG 1unit/0.01ml Soln (100units/ml) SC SCH ×4 (06:00→18:00)
[2016-07-10] MEDS: SODIUM BICARBONATE 50ML VIAL 50 ML in SOD CHL 0.45% 1,000 ML IV SCH ×3 (06:19→20:49)
[2016-07-10 06:27] LABS: Potassium 4.5 mmol/L (3.5-5.1)
[2016-07-10 06:44] LABS: Albumin 2.6 g/dL (3.4-5.0); BUN/Creatinine Ratio 22.8; Bilirubin, Total 0.3 mg/dL (0.2-1.0); Calcium 7.2 mg/dL (8.5-10.1); Total Protein 5.5 g/dL (6.4-8.2)
[2016-07-10 08:00] VITALS: BP 136/68
[2016-07-10 08:31] VITALS: BP 136/68
[2016-07-10] MEDS: PANTOPRAZOLE 40 MG TAB PO SCH (10:03)
[2016-07-10 13:00] VITALS: BP 143/87
[2016-07-10 17:00] VITALS: BP 126/79
[2016-07-10] MEDS: ENOXAPARIN SOD 30 MG/0.3 ML SYRINGE SC SCH (18:13)
[2016-07-10] MEDS: PRO-STAT 64 30ML PO SCH (18:14)
[2016-07-10] MEDS: PHENYTOIN SODIUM 100 MG CAP PO SCH (21:39)
[2016-07-10 22:00] VITALS: BP 134/74
[2016-07-11 05:00] VITALS: BP 122/69
[2016-07-11] MEDS: SODIUM BICARBONATE 50ML VIAL 50 ML in SOD CHL 0.45% 1,000 ML IV SCH (05:36)
[2016-07-11] MEDS: PHENYTOIN SODIUM 100 MG CAP PO SCH ×3 (05:45→22:14)
[2016-07-11] MEDS: ACCU-CHEK COMFORT CURVE STRIP VI SCH ×4 (05:59→18:00)
[2016-07-11] MEDS: InsuLIN REG 1unit/0.01ml Soln (100units/ml) SC SCH ×4 (05:59→18:00)
[2016-07-11 07:16] LABS: Calcium 7.2 mg/dL (8.5-10.1); Potassium 4.3 mmol/L (3.5-5.1)
[2016-07-11 07:22] LABS: Albumin 2.2 g/dL (3.4-5.0); BUN/Creatinine Ratio 22.8; Bilirubin, Total 0.1 mg/dL (0.2-1.0); Total Protein 5.1 g/dL (6.4-8.2)
[2016-07-11 08:00] VITALS: BP 117/69
[2016-07-11] MEDS: PRO-STAT 64 30ML PO SCH ×2 (08:00→18:00)
[2016-07-11 09:00] VITALS: BP 117/69
[2016-07-11] MEDS: PANTOPRAZOLE 40 MG TAB PO SCH (09:40)
[2016-07-11] MEDS: SODIUM BICARBONATE 50ML VIAL 50 ML in D5W/SOD CHL 0.45% 1,000 ML IV SCH ×2 (11:28→22:15)
[2016-07-11] MEDS: B-COMPLEX W/ C & FOLIC ACID(NEPHROVITE TAB) PO SCH (11:28)
[2016-07-11] MEDS ORDERED: LORazepam 2MG/ML-1ML VIAL IV PRN (16:15)
[2016-07-11 16:49] LABS: Temperature: 23.9 C (20.0-25.0)
[2016-07-11] MEDS: ENOXAPARIN SOD 30 MG/0.3 ML SYRINGE SC SCH (18:37)
[2016-07-11 20:00] VITALS: BP 129/71
[2016-07-11 22:00] VITALS: BP 129/71
[2016-07-12] VITALS (7 sets, daily range): BP systolic 108–126; BP diastolic 65–69
[2016-07-12] MEDS: ACCU-CHEK COMFORT CURVE STRIP VI SCH ×5 (00:11→23:30)
[2016-07-12] MEDS: InsuLIN REG 1unit/0.01ml Soln (100units/ml) SC SCH ×4 (00:11→18:00)
[2016-07-12] MEDS: SODIUM BICARBONATE 50ML VIAL 50 ML in D5W/SOD CHL 0.45% 1,000 ML IV SCH ×3 (04:31→23:18)
[2016-07-12] MEDS: PHENYTOIN SODIUM 100 MG CAP PO SCH ×3 (05:32→21:39)
[2016-07-12 06:48] LABS: Albumin 2.2 g/dL (3.4-5.0)
[2016-07-12 06:51] LABS: BUN/Creatinine Ratio 24.6; Bilirubin, Total 0.2 mg/dL (0.2-1.0); Total Protein 5.4 g/dL (6.4-8.2)
[2016-07-12] MEDS ORDERED: CYANOCOBALAMIN (B-12) 1000 MCG/1 ML VIAL IM ONE (09:00)
[2016-07-12] MEDS: CYANOCOBALAMIN 500 MCG TAB PO SCH (10:00)
[2016-07-12] MEDS: PANTOPRAZOLE 40 MG TAB PO SCH (11:04)
[2016-07-12] MEDS: B-COMPLEX W/ C & FOLIC ACID(NEPHROVITE TAB) PO SCH (11:04)
[2016-07-12 14:53] LABS: BUN/Creatinine Ratio 23.6; Calcium 7.2 mg/dL (8.5-10.1)
[2016-07-12] MEDS: PRO-STAT 64 30ML PO SCH ×2 (16:15→18:00)
[2016-07-13 05:00] VITALS: BP 121/70
[2016-07-13] MEDS: SODIUM BICARBONATE 50ML VIAL 50 ML in D5W/SOD CHL 0.45% 1,000 ML IV SCH ×3 (05:24→20:23)
[2016-07-13] MEDS: InsuLIN REG 1unit/0.01ml Soln (100units/ml) SC SCH ×4 (05:26→18:21)
[2016-07-13] MEDS: PHENYTOIN SODIUM 100 MG CAP PO SCH ×3 (05:26→22:04)
[2016-07-13] MEDS: ACCU-CHEK COMFORT CURVE STRIP VI SCH ×3 (05:27→18:21)
[2016-07-13 07:27] LABS: Albumin 2.5 g/dL (3.4-5.0); BUN/Creatinine Ratio 26.9; Bilirubin, Total 0.2 mg/dL (0.2-1.0); Calcium 7.1 mg/dL (8.5-10.1); Potassium 3.9 mmol/L (3.5-5.1); Total Protein 5.8 g/dL (6.4-8.2)
[2016-07-13] MEDS: B-COMPLEX W/ C & FOLIC ACID(NEPHROVITE TAB) PO SCH (09:44)
[2016-07-13] MEDS: PANTOPRAZOLE 40 MG TAB PO SCH (09:44)
[2016-07-13] MEDS: CYANOCOBALAMIN 500 MCG TAB PO SCH (09:44)
[2016-07-13] MEDS ORDERED: ONDANSETRON HCL 4 MG/2 ML VIAL IV PRN (11:15)
[2016-07-13 13:00] VITALS: BP 138/66
[2016-07-13] MEDS: PRO-STAT 64 30ML PO SCH (14:47)
[2016-07-13 16:37] VITALS: BP 135/80
[2016-07-13] MEDS: ENOXAPARIN SOD 30 MG/0.3 ML SYRINGE SC SCH ×2 (18:21→18:33)
[2016-07-13 22:00] VITALS: BP 131/76
[2016-07-13] MEDS: Suplena 8 ounce PO SCH (22:00)
[2016-07-14] MEDS: InsuLIN REG 1unit/0.01ml Soln (100units/ml) SC SCH ×4 (00:28→17:45)
[2016-07-14] MEDS: ACCU-CHEK COMFORT CURVE STRIP VI SCH ×4 (00:28→17:46)
[2016-07-14 04:00] VITALS: BP 127/64
[2016-07-14] MEDS: SODIUM BICARBONATE 50ML VIAL 50 ML in D5W/SOD CHL 0.45% 1,000 ML IV SCH ×3 (05:48→22:54)
[2016-07-14] MEDS: PHENYTOIN SODIUM 100 MG CAP PO SCH ×3 (05:48→21:19)
[2016-07-14 06:39] LABS: Albumin 2.2 g/dL (3.4-5.0); Calcium 7.1 mg/dL (8.5-10.1); Potassium 4.2 mmol/L (3.5-5.1)
[2016-07-14 06:48] LABS: BUN/Creatinine Ratio 23.6; Bilirubin, Total 0.2 mg/dL (0.2-1.0); Total Protein 5.5 g/dL (6.4-8.2)
[2016-07-14] MEDS: Suplena 8 ounce PO SCH ×2 (10:00→21:19)
[2016-07-14] MEDS: CYANOCOBALAMIN 500 MCG TAB PO SCH (10:49)
[2016-07-14] MEDS: B-COMPLEX W/ C & FOLIC ACID(NEPHROVITE TAB) PO SCH (10:49)
[2016-07-14] MEDS: PANTOPRAZOLE 40 MG TAB PO SCH (10:49)
[2016-07-14 11:07] LABS: Vitamin D 25-Hydroxy 5.2 ng/mL (.); Vitamin D-2 25-Hydroxy <1.0 ng/mL (.)
[2016-07-14 13:00] VITALS: BP 142/74
[2016-07-14 17:00] VITALS: BP 149/67
[2016-07-14] MEDS: ENOXAPARIN SOD 30 MG/0.3 ML SYRINGE SC SCH (17:45)
[2016-07-14 22:00] VITALS: BP 152/84
[2016-07-15] MEDS: ACCU-CHEK COMFORT CURVE STRIP VI SCH ×5 (00:10→22:55)
[2016-07-15] MEDS: InsuLIN REG 1unit/0.01ml Soln (100units/ml) SC SCH ×5 (00:24→22:56)
[2016-07-15 05:00] VITALS: BP 144/81
[2016-07-15] MEDS: PHENYTOIN SODIUM 100 MG CAP PO SCH ×3 (05:43→22:56)
[2016-07-15] MEDS: SODIUM BICARBONATE 50ML VIAL 50 ML in D5W/SOD CHL 0.45% 1,000 ML IV SCH ×2 (05:44→14:44)
[2016-07-15 07:00] LABS: Albumin 2.2 g/dL (3.4-5.0); Calcium 7.5 mg/dL (8.5-10.1); Potassium 3.6 mmol/L (3.5-5.1)
[2016-07-15 07:03] LABS: BUN/Creatinine Ratio 25.1; Bilirubin, Total 0.2 mg/dL (0.2-1.0); Total Protein 5.8 g/dL (6.4-8.2)
[2016-07-15 09:00] VITALS: BP 141/78
[2016-07-15] MEDS: CYANOCOBALAMIN 500 MCG TAB PO SCH (09:49)
[2016-07-15] MEDS: PANTOPRAZOLE 40 MG TAB PO SCH (09:49)
[2016-07-15] MEDS: B-COMPLEX W/ C & FOLIC ACID(NEPHROVITE TAB) PO SCH (09:49)
[2016-07-15] MEDS: Suplena 8 ounce PO SCH ×2 (10:00→22:56)
[2016-07-15 13:00] VITALS: BP 136/76
[2016-07-15 17:00] VITALS: BP 136/80
[2016-07-15] MEDS: ENOXAPARIN SOD 30 MG/0.3 ML SYRINGE SC SCH (18:00)
[2016-07-15 21:56] VITALS: BP 143/88
[2016-07-16 05:01] VITALS: BP 143/75
[2016-07-16] MEDS: SODIUM BICARBONATE 50ML VIAL 50 ML in D5W/SOD CHL 0.45% 1,000 ML IV SCH ×2 (05:32→08:36)
[2016-07-16] MEDS: ACCU-CHEK COMFORT CURVE STRIP VI SCH (07:00)
[2016-07-16] MEDS: InsuLIN REG 1unit/0.01ml Soln (100units/ml) SC SCH (07:00)
[2016-07-16] MEDS: PHENYTOIN SODIUM 100 MG CAP PO SCH (07:00)
[2016-07-16 08:00] VITALS: BP 136/71
[2016-07-16] MEDS: Suplena 8 ounce PO SCH (10:00)
[2016-07-16 10:49] VITALS: BP 136/71
[2016-07-16] MEDS: B-COMPLEX W/ C & FOLIC ACID(NEPHROVITE TAB) PO SCH (11:52)
[2016-07-16] MEDS: PANTOPRAZOLE 40 MG TAB PO SCH (11:53)
[2016-07-16] MEDS: CYANOCOBALAMIN 500 MCG TAB PO SCH (11:53)
== END 2016-07-16 13:30 | disposition home or self-care (01) | DRG 460 ==
LOC: ER 15:14 → TELE 15:15 → WEST WING 07-07 09:04 → TELE-WESTW 07-08 00:08
PROVIDERS: ADMIT Internal Medicine; ATTEND Internal Medicine Pulmonary Disease
DX: N17.0 Acute kidney failure with tubular necrosis (principal); E44.0 Moderate protein-calorie malnutrition; E11.649 Type 2 diabetes mellitus with hypoglycemia without coma; F03.90 Unspecified dementia, unspecified severity, without behavioral disturbance, psychotic disturbance, mood disturbance, and anxiety; E11.21 Type 2 diabetes mellitus with diabetic nephropathy; I12.0 Hypertensive chronic kidney disease with stage 5 chronic kidney disease or end stage renal disease; G31.2 Degeneration of nervous system due to alcohol; E87.5 Hyperkalemia; N28.0 Ischemia and infarction of kidney; E86.0 Dehydration; F10.20 Alcohol dependence, uncomplicated; G40.909 Epilepsy, unspecified, not intractable, without status epilepticus; F17.210 Nicotine dependence, cigarettes, uncomplicated; D64.9 Anemia, unspecified; E11.22 Type 2 diabetes mellitus with diabetic chronic kidney disease; E53.8 Deficiency of other specified B group vitamins; N18.5 Chronic kidney disease, stage 5; I15.9 Secondary hypertension, unspecified; G93.89 Other specified disorders of brain; I25.2 Old myocardial infarction; Z68.20 Body mass index [BMI] 20.0-20.9, adult
CPT/HCPCS: 36415; 70450; 71020; 76775; 80048; 80053; 80061; 81001; 82306; 82570; 82607; 82728; 82746; 82962; 83036; 83540; 83550; 83605; 83970; 84100; 84300; 84439; 84443; 84484; 85025; 85652; 87086; 87493; 93005; 94644; 95819; 96361; 96365; 96367; 96375; 96376; 97001; 97116; 97530; 99291; J1815; J7042

== ENCOUNTER 2016-08-08 20:12 | Inpatient (IN) | payer MEDICAID ==
[~2016-08-08] VITALS: Ht 175.3 cm; Wt 72.9 kg
[~2016-08-08 20:12] MED LIST changes: -BENA10TA3 PO; +BENA10TA9 PO; +BENA20TA14; -BENA20TA4; -METF-316; -METF-489 PO; -NAP500T; -NAPR-604 PO
[2016-08-08 21:37] LABS: Albumin 2.6 g/dL (3.4-5.0); BUN/Creatinine Ratio 18.9; Bilirubin, Total 0.6 mg/dL (0.2-1.0); Calcium 6.2 mg/dL (8.5-10.1); Total Protein 6.8 g/dL (6.4-8.2)
[2016-08-08 21:48] LABS: CONDITION Y; DEFINITIVE SEE PRINTOUT; Hematocrit 15.8 % (41.0-53.0); Mean Corpuscular Hemoglobin 32.7 pg (28.0-32.0); Mean Corpuscular Hgb Conc. 33.6 g/dL (32.0-36.0); Mean Corpuscular Volume 97.3 fL (80.0-100.0); Mean Platelet Volume 8.4 fL (7.4-10.4); Platelet Count (auto) 352 10^3/uL (140-450); Red Cell Distribution Width 19.6 % (11.6-16.0); SUSPECT SEE PRINTOUT; White Blood Cell 10.8 10^3/uL (4.4-10.8)
[2016-08-08 21:52] LABS: Hemoglobin 5.3 g/dL (13.5-17.5)
[2016-08-08 21:53] LABS: Metamyelocytes % 0; Myelocytes % 0; Promyelocytes % 0; Reactive Lymphocytes 0
[2016-08-08 21:54] LABS: Potassium 8.5 mmol/L (3.5-5.1)
[2016-08-08 21:59] LABS: B-Type Natriuretic Peptide 564.5 pg/mL (0-100)
[2016-08-08] MEDS ORDERED: InsuLIN REG 1unit/0.01ml Soln (100units/ml) IV ONE (22:15)
[2016-08-08] MEDS ORDERED: SODIUM BICARBONATE 8.4 % INJ 50ML VIAL IV ONE (22:15)
[2016-08-08] MEDS ORDERED: DEXTROSE (50%) 50ML SYRG IV ONE (22:15)
[2016-08-08] MEDS ORDERED: CALCIUM GLUC 4.65 MEQ/10ML 4.65 MEQ in SODIUM CHL 0.9% 50 ML IV ONE (22:15)
[2016-08-08 22:21] LABS: Platelet Estimate Adequate
[2016-08-08 22:22] LABS: Anisocytosis Moderate; Burr Cells MODERATE; Large Platelets FEW
[2016-08-08 22:28] LABS: Temperature: 24.3 C (20.0-25.0)
[2016-08-09] VITALS (13 sets, daily range): BP systolic 120–149; BP diastolic 57–73
[2016-08-09 02:47] LABS: Urine Bilirubin Negative (Negative); Urine Color Yellow (Yellow); Urine Glucose Normal (Normal); Urine Ketone Negative (Negative); Urine Nitrite Negative (Negative); Urine RBC 2 /hpf (0 - 3); Urine Squamous Epithelial Cell FEW /hpf (<5); Urine Urobilinogen Normal (Negative); Urine WBC Clumps PRESENT /hpf (None Seen); Urine pH 5.5 (5.0-8.0)
[2016-08-09 02:48] LABS: Urine Blood 1+ /uL (Negative)
[2016-08-09] MEDS ORDERED: ALBUTEROL SULF 2.5 MG/0.5ML(0.5%) NEB SOLN NEB ONE (03:15)
[2016-08-09] MEDS ORDERED: InsuLIN REG 1unit/0.01ml Soln (100units/ml) IV ONE ×2 (03:15→13:30)
[2016-08-09] MEDS ORDERED: CALCIUM GLUC 4.65 MEQ/10ML 4.65 MEQ in SODIUM CHL 0.9% 50 ML IV ONE ×2 (03:15→13:30)
[2016-08-09] MEDS ORDERED: SODIUM BICARBONATE 8.4 % INJ 50ML VIAL IV ONE (03:15)
[2016-08-09] MEDS ORDERED: DEXTROSE (50%) 50ML SYRG IV ONE ×3 (03:15→20:00)
[2016-08-09] MEDS ORDERED: FUROSEMIDE 40 MG/4 ML VIAL IV ONE (03:15)
[2016-08-09] MEDS ORDERED: SODIUM POLYSTYRENE SULF 15GM/60ML SUSP PO ONE ×3 (03:15→20:45)
[2016-08-09] MEDS ORDERED: DEXTROSE 10% 1,000 ML IV ONE (03:45)
[2016-08-09] MEDS ORDERED: CALCIUM GLUC 4.65 MEQ/10ML IV ONE (03:46)
[2016-08-09] MEDS ORDERED: SODIUM CHLORIDE 0.9% 1,000 ML IV SCH ×2 (03:49→11:30)
[2016-08-09] MEDS ORDERED: FUROSEMIDE 20 MG/2 ML VIAL IV ONE ×2 (04:00→13:30)
[2016-08-09] MEDS ORDERED: PANTOPRAZOLE SODIUM 40 MG/10 ML VIAL IV ONE (04:00)
[2016-08-09] MEDS ORDERED: NITROGLYCERIN 0.4 MG SL TAB SL PRN (04:00)
[2016-08-09] MEDS ORDERED: MORPHINE SULF INJ 2 MG/ML SYRINGE 1ML IV PRN (04:00)
[2016-08-09] MEDS ORDERED: ALBUTEROL SULF 2.5 MG/0.5ML(0.5%) NEB SOLN NEB PRN (04:00)
[2016-08-09] MEDS ORDERED: ONDANSETRON HCL 4 MG/2 ML VIAL IV PRN (04:00)
[2016-08-09] MEDS ORDERED: ACETAMINOPHEN 325 MG TAB PO PRN (04:00)
[2016-08-09] MEDS: cefTRIAXone 1GM/50ML D5W 50 ML IV SCH (05:25)
[2016-08-09] MEDS: DEXTROSE (50%) 50ML SYRG IV PRN ×2 (05:54→16:49)
[2016-08-09] MEDS: PHENYTOIN SODIUM 100 MG CAP PO SCH ×4 (05:54→22:00)
[2016-08-09] MEDS: ACCU-CHEK COMFORT CURVE STRIP VI SCH ×3 (05:55→18:09)
[2016-08-09] MEDS: InsuLIN REG 1unit/0.01ml Soln (100units/ml) SC SCH ×4 (05:55→23:35)
[2016-08-09] MEDS ORDERED: SODIUM CHLORIDE 0.9% 2,000 ML IV ONE ×2 (09:30→13:30)
[2016-08-09] MEDS: LEVETIRACETAM 500 MG TAB PO SCH (09:38)
[2016-08-09 12:15] LABS: Basophils # (auto) 0 uL; CONDITION Y; DEFINITIVE SEE PRINTOUT
[2016-08-09 12:41] LABS: Albumin 2.5 g/dL (3.4-5.0); BUN/Creatinine Ratio 18.8
[2016-08-09 12:42] LABS: Bilirubin, Total 0.5 mg/dL (0.2-1.0); Total Protein 6.3 g/dL (6.4-8.2)
[2016-08-09 13:08] LABS: Potassium 7.7 mmol/L (3.5-5.1)
[2016-08-09 13:09] LABS: Calcium 5.7 mg/dL (8.5-10.1)
[2016-08-09] MEDS: SODIUM CHLORIDE 0.9% 1,000 ML IV SCH ×2 (13:35→18:09)
[2016-08-09 13:37] LABS: Magnesium 1.7 mg/dL (1.6-2.6)
[2016-08-09 13:50] LABS: Basophils % (auto) 0.3 % (0.0-2.0); Eosinophils # (auto) 0.1 uL; Lymphocytes # (auto) 1.2 uL; Lymphocytes % (auto) 8.8 % (10.0-50.0); Monocytes # (auto) 0.9 uL; Monocytes % (auto) 6.7 % (0.0-12.0); Neutrophils # (auto) 11.4 uL; Neutrophils % (auto) 83.2 % (37.0-80.0); White Blood Cell 13.7 10^3/uL (4.4-10.8)
[2016-08-09 13:52] LABS: Hematocrit 26.3 % (41.0-53.0); Hemoglobin 8.9 g/dL (13.5-17.5); Mean Corpuscular Volume 94.1 fL (80.0-100.0)
[2016-08-09 13:53] LABS: Mean Corpuscular Hemoglobin 31.8 pg (28.0-32.0); Mean Corpuscular Hgb Conc. 33.8 g/dL (32.0-36.0); Mean Platelet Volume 8.8 fL (7.4-10.4); Platelet Count (auto) 296 10^3/uL (140-450); Red Cell Distribution Width 16.6 % (11.6-16.0)
[2016-08-09 16:07] LABS: Urine Bilirubin Negative (Negative); Urine Blood 2+ /uL (Negative); Urine Color Colorless (Yellow); Urine Glucose Normal (Normal); Urine Ketone Negative (Negative); Urine Mucus FEW (None Seen); Urine Nitrite Negative (Negative); Urine RBC 10 /hpf (0 - 3); Urine Squamous Epithelial Cell FEW /hpf (<5); Urine Urobilinogen Normal (Negative)
[2016-08-09 19:15] LABS: CONDITION Y; Hematocrit 27.1 % (41.0-53.0); Hemoglobin 9.1 g/dL (13.5-17.5); Mean Corpuscular Hgb Conc. 33.4 g/dL (32.0-36.0); Mean Corpuscular Volume 95.7 fL (80.0-100.0); Mean Platelet Volume 8.5 fL (7.4-10.4); Platelet Count (auto) 292 10^3/uL (140-450); Red Cell Distribution Width 17.2 % (11.6-16.0); White Blood Cell 14.6 10^3/uL (4.4-10.8)
[2016-08-09 19:17] LABS: Metamyelocytes % 0; Myelocytes % 0; Promyelocytes % 0; Reactive Lymphocytes 0
[2016-08-09 19:26] LABS: Calcium 5.8 mg/dL (8.5-10.1); Potassium 6.3 mmol/L (3.5-5.1)
[2016-08-09] MEDS ORDERED: InsuLIN REG 1unit/0.01ml Soln (100units/ml) ONE (19:50)
[2016-08-09] MEDS ORDERED: DEXTROSE 50% SYRINGE 50 ML IV ONE (19:50)
[2016-08-09 19:55] LABS: Anisocytosis Moderate; Burr Cells MODERATE; Platelet Estimate Adequate
[2016-08-09] MEDS ORDERED: InsuLIN REG 1unit/0.01ml Soln (100units/ml) SC ONE (20:00)
[2016-08-09] MEDS ORDERED: BUMETANIDE (0.25 MG/ML) INJ 10ML IV ONE (20:45)
[2016-08-10] MEDS: SODIUM CHLORIDE 0.9% 1,000 ML IV SCH ×2 (01:30→11:17)
[2016-08-10 04:08] LABS: CONDITION Y; DEFINITIVE SEE PRINTOUT; Hematocrit 25.6 % (41.0-53.0); Hemoglobin 8.5 g/dL (13.5-17.5); Mean Corpuscular Hemoglobin 31.6 pg (28.0-32.0); Mean Corpuscular Hgb Conc. 33.1 g/dL (32.0-36.0); Mean Corpuscular Volume 95.6 fL (80.0-100.0); Mean Platelet Volume 8.4 fL (7.4-10.4); Platelet Count (auto) 297 10^3/uL (140-450); Red Cell Distribution Width 16.8 % (11.6-16.0); White Blood Cell 14.3 10^3/uL (4.4-10.8)
[2016-08-10 04:14] LABS: Albumin 2.3 g/dL (3.4-5.0); Bilirubin, Total 0.4 mg/dL (0.2-1.0); Total Protein 6.1 g/dL (6.4-8.2)
[2016-08-10 04:49] LABS: BUN/Creatinine Ratio 17.8
[2016-08-10 04:52] LABS: Potassium 5.7 mmol/L (3.5-5.1)
[2016-08-10 04:53] LABS: Calcium 5.7 mg/dL (8.5-10.1); Phosphorus 9.5 mg/dL (2.5-4.90)
[2016-08-10 05:02] LABS: Metamyelocytes % 0; Myelocytes % 0; Promyelocytes % 0; Reactive Lymphocytes 0
[2016-08-10 05:04] LABS: Anisocytosis Moderate; Burr Cells MODERATE; Hypersegmented Neutrophils Present; Large Platelets FEW
[2016-08-10 05:05] LABS: Platelet Estimate Adequa; Schistocytes FEW
[2016-08-10] MEDS ORDERED: SODIUM CHLORIDE 0.9% 500 ML IV ONE (05:30)
[2016-08-10] MEDS: cefTRIAXone 1GM/50ML D5W 50 ML IV SCH (05:50)
[2016-08-10] MEDS: InsuLIN REG 1unit/0.01ml Soln (100units/ml) SC SCH ×3 (06:00→17:32)
[2016-08-10] MEDS: PHENYTOIN SODIUM 100 MG CAP PO SCH ×3 (06:12→21:16)
[2016-08-10] MEDS: ACCU-CHEK COMFORT CURVE STRIP VI SCH ×4 (06:12→17:37)
[2016-08-10] MEDS: PANTOPRAZOLE SODIUM 40 MG/10 ML VIAL IV SCH (10:16)
[2016-08-10] MEDS: LEVETIRACETAM 500 MG TAB PO SCH (10:16)
[2016-08-10] MEDS ORDERED: SODIUM CHLORIDE 0.9% 1,000 ML IV ONE ×2 (11:15)
[2016-08-10] MEDS ORDERED: PHE100C PO (14:41)
[2016-08-10] MEDS ORDERED: CLOP75TA41 PO (14:43)
[2016-08-10] MEDS ORDERED: NAPR-604 PO (14:49)
[2016-08-10] MEDS ORDERED: SODIUM BICARBONATE 8.4 % INJ 50ML VIAL IV ONE (17:45)
[2016-08-10] MEDS: SODIUM BICARBONATE 50ML VIAL 150 ML in D5W 5% 1,000 ML IV SCH (18:54)
[2016-08-10 20:00] VITALS: BP 127/79
[2016-08-10 21:02] LABS: BUN/Creatinine Ratio 15.9
[2016-08-10 21:20] LABS: Calcium 5.5 mg/dL (8.5-10.1)
[2016-08-11] MEDS: SODIUM BICARBONATE 50ML VIAL 150 ML in D5W 5% 1,000 ML IV SCH ×2 (05:30→17:00)
[2016-08-11 05:48] LABS: CONDITION Y; DEFINITIVE SEE PRINTOUT; Hematocrit 23.4 % (41.0-53.0); Hemoglobin 7.9 g/dL (13.5-17.5); Mean Corpuscular Hemoglobin 31.8 pg (28.0-32.0); Mean Corpuscular Hgb Conc. 33.6 g/dL (32.0-36.0); Mean Corpuscular Volume 94.5 fL (80.0-100.0); Mean Platelet Volume 8.6 fL (7.4-10.4); Platelet Count (auto) 254 10^3/uL (140-450); Red Cell Distribution Width 17.2 % (11.6-16.0); SUSPECT SEE PRINTOUT; White Blood Cell 12.3 10^3/uL (4.4-10.8)
[2016-08-11] MEDS: cefTRIAXone 1GM/50ML D5W 50 ML IV SCH (05:49)
[2016-08-11] MEDS: PHENYTOIN SODIUM 100 MG CAP PO SCH ×3 (05:52→23:17)
[2016-08-11] MEDS: ACCU-CHEK COMFORT CURVE STRIP VI SCH ×4 (06:00→18:00)
[2016-08-11] MEDS: InsuLIN REG 1unit/0.01ml Soln (100units/ml) SC SCH ×4 (06:00→18:00)
[2016-08-11 06:02] LABS: Albumin 2.1 g/dL (3.4-5.0); Potassium 4.9 mmol/L (3.5-5.1)
[2016-08-11 06:06] LABS: BUN/Creatinine Ratio 15.8; Bilirubin, Total 0.3 mg/dL (0.2-1.0); Total Protein 5.9 g/dL (6.4-8.2)
[2016-08-11 06:14] LABS: Metamyelocytes % 0; Myelocytes % 0; Promyelocytes % 0; Reactive Lymphocytes 0
[2016-08-11 06:28] LABS: Calcium 5.3 mg/dL (8.5-10.1)
[2016-08-11 09:00] VITALS: BP 140/74
[2016-08-11] MEDS: LEVETIRACETAM 500 MG TAB PO SCH (09:28)
[2016-08-11] MEDS: PANTOPRAZOLE SODIUM 40 MG/10 ML VIAL IV SCH (09:29)
[2016-08-11 10:11] LABS: INR 1.08 (0.9-1.15); Prothrombin Time 11.8 sec (9.37-12.3)
[2016-08-11] MEDS ORDERED: LIDOCAINE 2%HCL (LOCAL ANESTH.) INJ 20ML MDV ONE (10:40)
[2016-08-11] MEDS ORDERED: ceFAZolin 1GM/50ML D5W 50 ML IV ONE ×2 (11:11→11:30)
[2016-08-11] MEDS ORDERED: MIDAZOLAM HCL 1MG/1ML-2 ML VIAL ONE (11:13)
[2016-08-11] MEDS ORDERED: HEPARIN SODIUM (PORCINE) 5000 UNITS/ML 1ML VIAL ONE (11:27)
[2016-08-11 11:46] LABS: Platelet Estimate Adequate
[2016-08-11 11:47] LABS: Burr Cells MODERATE; Ovalocytes FEW
[2016-08-11 11:48] LABS: Anisocytosis Slight
[2016-08-11] MEDS ORDERED: fentaNYL CITRATE 100 MCG/2 ML VL ONE (12:05)
[2016-08-11 13:00] VITALS: BP 143/68
[2016-08-11 17:00] VITALS: BP 143/91
[2016-08-11 22:00] VITALS: BP 155/82
[2016-08-12] VITALS (8 sets, daily range): BP systolic 135–161; BP diastolic 70–85
[2016-08-12] MEDS: SODIUM BICARBONATE 50ML VIAL 150 ML in D5W 5% 1,000 ML IV SCH (04:31)
[2016-08-12] MEDS: InsuLIN REG 1unit/0.01ml Soln (100units/ml) SC SCH ×4 (05:30→18:00)
[2016-08-12] MEDS: cefTRIAXone 1GM/50ML D5W 50 ML IV SCH (05:36)
[2016-08-12] MEDS: PHENYTOIN SODIUM 100 MG CAP PO SCH ×3 (05:36→21:52)
[2016-08-12] MEDS: ACCU-CHEK COMFORT CURVE STRIP VI SCH ×4 (06:00→18:07)
[2016-08-12 06:15] LABS: CONDITION Y; DEFINITIVE SEE PRINTOUT; Hematocrit 21.8 % (41.0-53.0); Hemoglobin 7.5 g/dL (13.5-17.5); Mean Corpuscular Hgb Conc. 34.5 g/dL (32.0-36.0); Mean Corpuscular Volume 92.9 fL (80.0-100.0); Mean Platelet Volume 8.8 fL (7.4-10.4); Platelet Count (auto) 257 10^3/uL (140-450); Red Cell Distribution Width 17.2 % (11.6-16.0); SUSPECT SEE PRINTOUT; White Blood Cell 13.8 10^3/uL (4.4-10.8)
[2016-08-12 06:18] LABS: Metamyelocytes % 0; Myelocytes % 0; Promyelocytes % 0; Reactive Lymphocytes 0
[2016-08-12 06:41] LABS: Potassium 4.6 mmol/L (3.5-5.1)
[2016-08-12 06:48] LABS: Albumin 2.1 g/dL (3.4-5.0); BUN/Creatinine Ratio 15.2
[2016-08-12 07:01] LABS: Bilirubin, Total 0.2 mg/dL (0.2-1.0); Total Protein 5.7 g/dL (6.4-8.2)
[2016-08-12 07:18] LABS: Calcium 5.6 mg/dL (8.5-10.1)
[2016-08-12 09:06] LABS: Burr Cells MANY; Platelet Estimate Adequate
[2016-08-12 09:07] LABS: Ovalocytes FEW
[2016-08-12 09:08] LABS: Schistocytes FEW
[2016-08-12] MEDS: PANTOPRAZOLE SODIUM 40 MG/10 ML VIAL IV SCH (09:13)
[2016-08-12] MEDS: LEVETIRACETAM 500 MG TAB PO SCH (09:14)
[2016-08-12] MEDS ORDERED: HEPARIN SODIUM (PORCINE) 5000 UNITS/ML 1ML VIAL IV ONE (13:30)
[2016-08-12] MEDS: SODIUM BICARBONATE 50ML VIAL 100 ML in D5W 5% 1,000 ML IV SCH (18:07)
[2016-08-13 05:00] VITALS: BP 147/81
[2016-08-13] MEDS: cefTRIAXone 1GM/50ML D5W 50 ML IV SCH (05:19)
[2016-08-13] MEDS: ACCU-CHEK COMFORT CURVE STRIP VI SCH ×4 (05:48→17:47)
[2016-08-13] MEDS: InsuLIN REG 1unit/0.01ml Soln (100units/ml) SC SCH ×4 (05:48→17:47)
[2016-08-13] MEDS: PHENYTOIN SODIUM 100 MG CAP PO SCH ×3 (05:49→21:27)
[2016-08-13] MEDS: SODIUM BICARBONATE 50ML VIAL 100 ML in D5W 5% 1,000 ML IV SCH ×2 (06:30→21:04)
[2016-08-13 09:00] VITALS: BP 133/77
[2016-08-13 10:36] LABS: Basophils # (auto) 0 uL; Basophils % (auto) 0.2 % (0.0-2.0); CONDITION Y; Eosinophils # (auto) 0.3 uL; Eosinophils % (auto) 2.7 % (0.0-7.0); Hemoglobin 8.7 g/dL (13.5-17.5); Lymphocytes # (auto) 2.2 uL; Lymphocytes % (auto) 20.8 % (10.0-50.0); Mean Corpuscular Hemoglobin 31.9 pg (28.0-32.0); Mean Platelet Volume 8.3 fL (7.4-10.4); Monocytes # (auto) 0.8 uL; Monocytes % (auto) 7.8 % (0.0-12.0); Neutrophils # (auto) 7.4 uL; Neutrophils % (auto) 68.5 % (37.0-80.0); Platelet Count (auto) 217 10^3/uL (140-450); Red Cell Distribution Width 16.5 % (11.6-16.0); White Blood Cell 10.7 10^3/uL (4.4-10.8)
[2016-08-13] MEDS: LEVETIRACETAM 500 MG TAB PO SCH (10:50)
[2016-08-13] MEDS: PANTOPRAZOLE SODIUM 40 MG/10 ML VIAL IV SCH (10:51)
[2016-08-13 10:53] LABS: BUN/Creatinine Ratio 14.9; Bilirubin, Total 0.2 mg/dL (0.2-1.0); Potassium 3.7 mmol/L (3.5-5.1); Total Protein 5.4 g/dL (6.4-8.2)
[2016-08-13 11:03] LABS: Calcium 5.5 mg/dL (8.5-10.1)
[2016-08-13 13:00] VITALS: BP 140/69
[2016-08-13 17:03] VITALS: BP 139/86
[2016-08-13] MEDS: CALCIUM ACETATE 667 MG CAP PO SCH (17:47)
[2016-08-14] VITALS (7 sets, daily range): BP systolic 135–159; BP diastolic 78–90
[2016-08-14] MEDS: SODIUM BICARBONATE 50ML VIAL 100 ML in D5W 5% 1,000 ML IV SCH ×2 (03:13→14:00)
[2016-08-14] MEDS: cefTRIAXone 1GM/50ML D5W 50 ML IV SCH (04:43)
[2016-08-14] MEDS: PHENYTOIN SODIUM 100 MG CAP PO SCH ×3 (05:57→21:52)
[2016-08-14] MEDS: InsuLIN REG 1unit/0.01ml Soln (100units/ml) SC SCH ×3 (05:57→12:10)
[2016-08-14] MEDS: ACCU-CHEK COMFORT CURVE STRIP VI SCH ×3 (05:57→12:10)
[2016-08-14 06:40] LABS: Basophils # (auto) 0 uL; Basophils % (auto) 0.2 % (0.0-2.0); CONDITION Y; Eosinophils # (auto) 0.3 uL; Eosinophils % (auto) 2.7 % (0.0-7.0); Hemoglobin 9.4 g/dL (13.5-17.5); Mean Corpuscular Hgb Conc. 34.9 g/dL (32.0-36.0)
[2016-08-14 06:45] LABS: Albumin 2.1 g/dL (3.4-5.0); BUN/Creatinine Ratio 14.2; Bilirubin, Total 0.2 mg/dL (0.2-1.0); Phosphorus 7.5 mg/dL (2.5-4.90); Potassium 3.8 mmol/L (3.5-5.1); Total Protein 5.8 g/dL (6.4-8.2)
[2016-08-14 06:49] LABS: Lymphocytes # (auto) 2.6 uL; Lymphocytes % (auto) 21.8 % (10.0-50.0); Mean Corpuscular Hemoglobin 31.8 pg (28.0-32.0); Mean Corpuscular Volume 91.2 fL (80.0-100.0); Mean Platelet Volume 8.5 fL (7.4-10.4); Monocytes # (auto) 1.1 uL; Monocytes % (auto) 9.4 % (0.0-12.0); Neutrophils # (auto) 7.8 uL; Neutrophils % (auto) 65.9 % (37.0-80.0); Platelet Count (auto) 213 10^3/uL (140-450); Red Cell Distribution Width 16.2 % (11.6-16.0); White Blood Cell 11.8 10^3/uL (4.4-10.8)
[2016-08-14 06:50] LABS: Calcium 5.3 mg/dL (8.5-10.1)
[2016-08-14] MEDS: CALCIUM ACETATE 667 MG CAP PO SCH ×3 (07:46→18:00)
[2016-08-14] MEDS: LEVETIRACETAM 500 MG TAB PO SCH (10:14)
[2016-08-14] MEDS: PANTOPRAZOLE SODIUM 40 MG/10 ML VIAL IV SCH (10:14)
[2016-08-15] MEDS: ACCU-CHEK COMFORT CURVE STRIP VI SCH ×3 (00:16→12:10)
[2016-08-15] MEDS: SODIUM BICARBONATE 50ML VIAL 100 ML in D5W 5% 1,000 ML IV SCH (01:00)
[2016-08-15 02:52] VITALS: BP 135/78
[2016-08-15] MEDS: cefTRIAXone 1GM/50ML D5W 50 ML IV SCH (04:44)
[2016-08-15 05:00] VITALS: BP 153/85
[2016-08-15] MEDS: PHENYTOIN SODIUM 100 MG CAP PO SCH ×2 (05:56→14:00)
[2016-08-15] MEDS: InsuLIN REG 1unit/0.01ml Soln (100units/ml) SC SCH ×3 (06:00→12:00)
[2016-08-15 06:55] LABS: Albumin 2.1 g/dL (3.4-5.0); BUN/Creatinine Ratio 13.9; Bilirubin, Total 0.2 mg/dL (0.2-1.0); Phosphorus 6.4 mg/dL (2.5-4.90); Potassium 4.1 mmol/L (3.5-5.1); Total Protein 5.8 g/dL (6.4-8.2)
[2016-08-15 07:20] LABS: Calcium 5.2 mg/dL (8.5-10.1)
[2016-08-15] MEDS: CALCIUM ACETATE 667 MG CAP PO SCH ×2 (08:19→12:09)
[2016-08-15] MEDS ORDERED: EPOETIN ALFA 10,000 UNIT/1 ML VIAL IV ONE (10:00)
[2016-08-15] MEDS ORDERED: SODIUM CHL 0.9% 1000 ML BAG XX ONE (10:00)
[2016-08-15] MEDS ORDERED: SEVELAMER 800 MG TAB PO ONE (10:30)
[2016-08-15] MEDS ORDERED: CHOLECALCIFEROL (VITD3) 1,000 UNIT TAB PO SCH (11:00)
[2016-08-15] MEDS: PANTOPRAZOLE SODIUM 40 MG/10 ML VIAL IV SCH (11:47)
[2016-08-15] MEDS: LEVETIRACETAM 500 MG TAB PO SCH (11:48)
[2016-08-15 16:50] VITALS: BP 157/88
[2016-08-17 21:06] LABS: Vitamin D 25-Hydroxy 3.1 ng/mL (.); Vitamin D-2 25-Hydroxy <1.0 ng/mL (.)
== END 2016-08-15 18:45 | disposition home or self-care (01) | DRG 710 ==
LOC: EDBD 20:12 → ER 20:18 → TELE 20:19 → TELE-E-ADS 08-10 13:28 → TELE-WESTW 08-10 13:53
PROVIDERS: ADMIT Internal Medicine; ATTEND Internal Medicine
PROC: 5A1D00Z (ICD-10-PCS; principal; 2016-08-08)
PROC: 02H633Z Insertion of Infusion Device into Right Atrium, Percutaneous Approach (ICD-10-PCS; 2016-08-08)
PROC: 0JH63XZ Insertion of Tunneled Vascular Access Device into Chest Subcutaneous Tissue and Fascia, Percutaneous Approach (ICD-10-PCS; 2016-08-08)
PROC: B2141ZZ Fluoroscopy of Right Heart using Low Osmolar Contrast (ICD-10-PCS; 2016-08-08)
PROC: 30233N1 Transfusion of Nonautologous Red Blood Cells into Peripheral Vein, Percutaneous Approach (ICD-10-PCS; 2016-08-08)
DX: A41.9 Sepsis, unspecified organism (principal); E43 Unspecified severe protein-calorie malnutrition; I13.2 Hypertensive heart and chronic kidney disease with heart failure and with stage 5 chronic kidney disease, or end stage renal disease; G93.41 Metabolic encephalopathy; E87.2 Acidosis; N17.9 Acute kidney failure, unspecified; E86.0 Dehydration; F03.90 Unspecified dementia, unspecified severity, without behavioral disturbance, psychotic disturbance, mood disturbance, and anxiety; E11.22 Type 2 diabetes mellitus with diabetic chronic kidney disease; E87.5 Hyperkalemia; N39.0 Urinary tract infection, site not specified; Z99.2 Dependence on renal dialysis; N18.6 End stage renal disease; D64.9 Anemia, unspecified; E11.649 Type 2 diabetes mellitus with hypoglycemia without coma; E11.65 Type 2 diabetes mellitus with hyperglycemia; E83.39 Other disorders of phosphorus metabolism; E83.51 Hypocalcemia; F12.90 Cannabis use, unspecified, uncomplicated; F17.210 Nicotine dependence, cigarettes, uncomplicated; G40.409 Other generalized epilepsy and epileptic syndromes, not intractable, without status epilepticus; I25.10 Atherosclerotic heart disease of native coronary artery without angina pectoris; I25.2 Old myocardial infarction; I50.9 Heart failure, unspecified; N25.81 Secondary hyperparathyroidism of renal origin; Z91.19 Patient's noncompliance with other medical treatment and regimen; Z71.89 Other specified counseling
CPT/HCPCS: 36415; 36430; 70450; 71010; 76775; 76942; 77002; 80048; 80053; 80307; 80320; 81001; 82270; 82306; 82550; 82570; 82962; 83605; 83735; 83874; 83880; 83970; 84100; 84132; 84156; 84300; 84484; 85007; 85025; 85027; 85610; 86803; 86850; 86900; 86901; 86920; 87081; 87086; 87088; 87186; 87340; 90935; 92610; 93005; 94640; 96361; 96365; 96375; 96376; 99152; C1769; C9113; J0690; J0696; J0885; J1642; J1815; J2250

== ENCOUNTER 2016-12-28 11:46 | Inpatient (IN) | payer MEDICARE, MEDICAID ==
[~2016-12-28] VITALS: Ht 175.3 cm; Wt 64.9 kg
[~2016-12-28 11:46] MED LIST changes: -ALBU18 IN; -BENA10TA9 PO; +CLOP75TA41 PO; -GLYB5TAB8; -LEVE500T3; +NAPR375T3 PO; -PANT40T; +PANT40T PO; +SIMV-8 PO
[2016-12-28] MEDS ORDERED: ASPirin 81 mg TAB PO ONE (12:15)
[2016-12-28 13:01] LABS: Eosinophils # (auto) 0.5 uL; Monocytes # (auto) 0.9 uL; Monocytes % (auto) 7.3 % (0.0-12.0)
[2016-12-28 13:03] LABS: Basophils # (auto) 0.1 uL; Eosinophils % (auto) 4.2 % (0.0-7.0); Hematocrit 18.9 % (41.0-53.0); Lymphocytes # (auto) 3.6 uL; Lymphocytes % (auto) 30.3 % (10.0-50.0); Mean Corpuscular Hemoglobin 32.5 pg (28.0-32.0); Mean Corpuscular Volume 98.7 fL (80.0-100.0); Mean Platelet Volume 8.1 fL (6.9-10.8); Neutrophils # (auto) 6.8 uL; Neutrophils % (auto) 57.2 % (37.0-80.0); Nucleated Red Blood Cells % 0.8 %; Platelet Count (auto) 273 10^3/uL (140-450); Red Cell Distribution Width 15.1 % (11.8-14.3); White Blood Cell 11.9 10^3/uL (4.4-10.8)
[2016-12-28 13:08] LABS: Hemoglobin 6.2 g/dL (13.5-17.5)
[2016-12-28 13:13] LABS: Partial Thromboplastin Time 28.7 sec (22.64-33.71); Prothrombin Time 10.9 sec (9.37-12.3)
[2016-12-28 13:16] LABS: Albumin 2.6 g/dL (3.4-5.0); BUN/Creatinine Ratio 10.2; Magnesium 1.9 mg/dL (1.6-2.6); Potassium 3.8 mmol/L (3.5-5.1)
[2016-12-28 13:21] LABS: Bilirubin, Total 0.5 mg/dL (0.2-1.0); Total Protein 7.6 g/dL (6.4-8.2)
[2016-12-28 13:22] LABS: Platelet Estimate Adequate
[2016-12-28 13:26] LABS: Burr Cells FEW; Ovalocytes FEW
[2016-12-28 13:44] LABS: Temperature: 21.8 C (20.0-25.0)
[2016-12-28] MEDS ORDERED: NITROGLYCERIN 0.2MG/HR TOPICAL PATCH TD ONE (14:15)
[2016-12-28] MEDS ORDERED: PIPERACILLIN-TAZOB 3.375GM 50 ML IV ONE (14:15)
[2016-12-28] MEDS ORDERED: PHENYTOIN SODIUM 100 MG CAP PO ONE (14:15)
[2016-12-28] MEDS ORDERED: ACETAMINOPHEN 500 MG TAB PO PRN (17:00)
[2016-12-28] MEDS ORDERED: DEXTROSE (50%) 50ML SYRG IV PRN (17:00)
[2016-12-28] MEDS ORDERED: HYDROmorphone HCL 2 MG/ML VL IV PRN (17:00)
[2016-12-28] MEDS ORDERED: NITROGLYCERIN 0.4 MG SL TAB SL PRN (17:00)
[2016-12-28] MEDS ORDERED: LORazepam 0.5 MG TAB PO PRN (17:00)
[2016-12-28] MEDS ORDERED: TEMAZEPAM 15 MG CAP PO PRN (17:00)
[2016-12-28] MEDS ORDERED: LACTULOSE 20Gm/30ML SOLN PO PRN (17:00)
[2016-12-28] MEDS ORDERED: HYDROcodone-ACET 5/325MG TAB PO PRN (17:00)
[2016-12-28] MEDS ORDERED: cefTRIAXone 1GM/50ML D5W 50 ML IV ONE (17:00)
[2016-12-28] MEDS ORDERED: ALBUTEROL SULF 2.5 MG/0.5ML(0.5%) NEB SOLN NEB PRN (17:00)
[2016-12-28] MEDS ORDERED: EPOETIN ALFA 10,000 UNIT/1 ML VIAL IV ONE (17:30)
[2016-12-28] MEDS ORDERED: SODIUM CHL 0.9% 1000 ML BAG XX ONE (17:30)
[2016-12-28] MEDS: IPRATROPIUM BROM 0.5 MG/2.5ML INH SOL NEB SCH (18:04)
[2016-12-28] MEDS: ALBUTEROL SULF 2.5 MG/0.5ML(0.5%) NEB SOLN NEB SCH (18:05)
[2016-12-28 18:38] LABS: Urine RBC None Seen /hpf (0 - 3)
[2016-12-28] MEDS: InsuLIN REG 1unit/0.01ml Soln (100units/ml) SC SCH (18:39)
[2016-12-28] MEDS: ACCU-CHEK COMFORT CURVE STRIP VI SCH (18:39)
[2016-12-28 18:45] LABS: Urine Bilirubin Negative (Negative); Urine Blood TRACE /uL (Negative); Urine Color Colorless (Yellow); Urine Glucose 1+ mg/dL (Normal); Urine Ketone Negative (Negative); Urine Nitrite Negative (Negative); Urine Urobilinogen Normal (Negative); Urine pH 7.5 (5.0-8.0)
[2016-12-28 19:49] LABS: Hematocrit 21.8 % (41.0-53.0); Hemoglobin 7.2 g/dL (13.5-17.5)
[2016-12-28 19:58] LABS: INR 0.98 (0.9-1.15); Prothrombin Time 10.7 sec (9.37-12.3)
[2016-12-28] MEDS ORDERED: AZITHROMYCIN 500MG/ 250ML 250 ML IV ONE (20:00)
[2016-12-28] MEDS ORDERED: PHENYTOIN SODIUM 100 MG CAP PO SCH (22:00)
[2016-12-28 22:11] VITALS: BP 138/76
[2016-12-29] VITALS (19 sets, daily range): BP systolic 106–147; BP diastolic 74–97
[2016-12-29] MEDS: IPRATROPIUM BROM 0.5 MG/2.5ML INH SOL NEB SCH ×4 (00:02→18:59)
[2016-12-29] MEDS: ALBUTEROL SULF 2.5 MG/0.5ML(0.5%) NEB SOLN NEB SCH ×4 (00:02→18:58)
[2016-12-29] MEDS: ATORVASTATIN 20 MG TAB PO SCH ×2 (00:31→22:40)
[2016-12-29] MEDS: BENAZEPRIL HCL 10 MG TAB PO SCH ×3 (00:31→22:42)
[2016-12-29] MEDS: PANTOPRAZOLE 40 MG TAB PO SCH ×3 (00:31→22:42)
[2016-12-29] MEDS: SODIUM CHLOR 0.9% PF (SALINE LOCK) 10ML VIAL IV SCH ×4 (00:31→22:19)
[2016-12-29] MEDS: METOPROLOL TARTRATE 25 MG TAB PO SCH ×3 (00:31→22:40)
[2016-12-29] MEDS: ACCU-CHEK COMFORT CURVE STRIP VI SCH ×5 (00:32→22:18)
[2016-12-29] MEDS: InsuLIN REG 1unit/0.01ml Soln (100units/ml) SC SCH ×5 (00:32→22:00)
[2016-12-29 02:05] LABS: Hematocrit 21.6 % (41.0-53.0); Hemoglobin 7.2 g/dL (13.5-17.5)
[2016-12-29 05:14] LABS: Basophils # (auto) 0.1 uL; Eosinophils # (auto) 0.5 uL; Hemoglobin 7.7 g/dL (13.5-17.5); Lymphocytes % (auto) 26.4 % (10.0-50.0); Monocytes # (auto) 0.9 uL; Red Cell Distribution Width 14.6 % (11.8-14.3)
[2016-12-29 05:15] LABS: Basophils % (auto) 0.6 % (0.0-2.0); Eosinophils % (auto) 5.1 % (0.0-7.0); Hematocrit 23.1 % (41.0-53.0); Lymphocytes # (auto) 2.6 uL; Mean Corpuscular Hemoglobin 33.1 pg (28.0-32.0); Mean Corpuscular Hgb Conc. 33.5 g/dL (32.0-36.0); Mean Corpuscular Volume 98.8 fL (80.0-100.0); Monocytes % (auto) 8.6 % (0.0-12.0); Neutrophils # (auto) 5.9 uL; Neutrophils % (auto) 59.3 % (37.0-80.0); Platelet Count (auto) 247 10^3/uL (140-450)
[2016-12-29 06:24] LABS: Albumin 2.6 g/dL (3.4-5.0); BUN/Creatinine Ratio 10.2; Bilirubin, Total 0.5 mg/dL (0.2-1.0); Calcium 7.1 mg/dL (8.5-10.1); Potassium 3.9 mmol/L (3.5-5.1); Total Protein 7.4 g/dL (6.4-8.2)
[2016-12-29] MEDS ORDERED: CLOPIDOGREL BISULFATE 75 MG TAB PO SCH (10:00)
[2016-12-29] MEDS: AZITHROMYCIN 500MG/ 250ML 250 ML IV SCH (13:40)
[2016-12-29] MEDS: FOLIC ACID 1 MG TAB PO SCH (13:41)
[2016-12-29] MEDS: LEVETIRACETAM 500 MG TAB PO SCH (13:41)
[2016-12-29] MEDS: cefTRIAXone 1GM/50ML D5W 50 ML IV SCH (13:41)
[2016-12-29] MEDS: NITROGLYCERIN 0.2MG/HR TOPICAL PATCH TD SCH (13:45)
[2016-12-29] MEDS: PHENYTOIN SODIUM 100 MG CAP PO SCH (18:10)
[2016-12-30] MEDS: ALBUTEROL SULF 2.5 MG/0.5ML(0.5%) NEB SOLN NEB SCH ×4 (00:48→20:10)
[2016-12-30] MEDS: IPRATROPIUM BROM 0.5 MG/2.5ML INH SOL NEB SCH ×4 (00:48→20:10)
[2016-12-30 03:59] VITALS: BP 145/90
[2016-12-30 05:26] LABS: Basophils # (auto) 0.1 uL; Basophils % (auto) 0.8 % (0.0-2.0); Eosinophils # (auto) 0.5 uL; Eosinophils % (auto) 4.2 % (0.0-7.0); Hematocrit 31.3 % (41.0-53.0); Hemoglobin 10.7 g/dL (13.5-17.5); Lymphocytes # (auto) 2.9 uL; Lymphocytes % (auto) 26.7 % (10.0-50.0); Mean Corpuscular Hemoglobin 32.3 pg (28.0-32.0); Mean Corpuscular Hgb Conc. 34.2 g/dL (32.0-36.0); Mean Corpuscular Volume 94.6 fL (80.0-100.0); Mean Platelet Volume 7.9 fL (6.9-10.8); Monocytes # (auto) 0.9 uL; Monocytes % (auto) 8.7 % (0.0-12.0); Neutrophils # (auto) 6.5 uL; Neutrophils % (auto) 59.6 % (37.0-80.0); Nucleated Red Blood Cells % 0.6 %; Platelet Count (auto) 263 10^3/uL (140-450); Red Cell Distribution Width 16.2 % (11.8-14.3); White Blood Cell 10.9 10^3/uL (4.4-10.8)
[2016-12-30] MEDS: SODIUM CHLOR 0.9% PF (SALINE LOCK) 10ML VIAL IV SCH ×3 (06:19→22:21)
[2016-12-30] MEDS: InsuLIN REG 1unit/0.01ml Soln (100units/ml) SC SCH ×4 (07:00→22:21)
[2016-12-30] MEDS: ACCU-CHEK COMFORT CURVE STRIP VI SCH ×4 (07:28→22:20)
[2016-12-30 07:30] VITALS: BP 153/92
[2016-12-30] MEDS: AZITHROMYCIN 500MG/ 250ML 250 ML IV SCH (09:42)
[2016-12-30] MEDS: cefTRIAXone 1GM/50ML D5W 50 ML IV SCH (09:42)
[2016-12-30] MEDS: FOLIC ACID 1 MG TAB PO SCH (09:42)
[2016-12-30] MEDS: LEVETIRACETAM 500 MG TAB PO SCH (09:42)
[2016-12-30] MEDS: PANTOPRAZOLE 40 MG TAB PO SCH ×2 (09:43→22:32)
[2016-12-30] MEDS: BENAZEPRIL HCL 10 MG TAB PO SCH ×2 (09:43→22:32)
[2016-12-30] MEDS: METOPROLOL TARTRATE 25 MG TAB PO SCH ×2 (09:43→22:31)
[2016-12-30] MEDS: NITROGLYCERIN 0.2MG/HR TOPICAL PATCH TD SCH (09:45)
[2016-12-30 12:00] VITALS: BP 142/83
[2016-12-30] MEDS ORDERED: LACTULOSE 20Gm/30ML SOLN PO PRN (13:45)
[2016-12-30] MEDS: CLOPIDOGREL BISULFATE 75 MG TAB PO SCH (14:51)
[2016-12-30 16:00] VITALS: BP 138/58
[2016-12-30] MEDS: PHENYTOIN SODIUM 100 MG CAP PO SCH (17:31)
[2016-12-30 20:00] VITALS: BP 142/85
[2016-12-30] MEDS: DOCUSATE SOD 100 MG CAP PO SCH (22:28)
[2016-12-30] MEDS: ATORVASTATIN 20 MG TAB PO SCH (22:28)
[2016-12-31] VITALS: BP 147/89
[2016-12-31] MEDS: ALBUTEROL SULF 2.5 MG/0.5ML(0.5%) NEB SOLN NEB SCH ×2 (00:14→07:18)
[2016-12-31] MEDS: IPRATROPIUM BROM 0.5 MG/2.5ML INH SOL NEB SCH ×4 (00:14→18:26)
[2016-12-31 04:20] VITALS: BP 150/95
[2016-12-31 05:28] LABS: Basophils # (auto) 0.1 uL; Basophils % (auto) 0.7 % (0.0-2.0); Eosinophils # (auto) 0.6 uL; Hematocrit 31.5 % (41.0-53.0); Hemoglobin 10.5 g/dL (13.5-17.5); Lymphocytes # (auto) 3.1 uL; Lymphocytes % (auto) 26.8 % (10.0-50.0); Mean Corpuscular Hemoglobin 31.9 pg (28.0-32.0); Mean Corpuscular Hgb Conc. 33.4 g/dL (32.0-36.0); Mean Corpuscular Volume 95.5 fL (80.0-100.0); Monocytes # (auto) 0.9 uL; Monocytes % (auto) 8.3 % (0.0-12.0); Neutrophils # (auto) 6.7 uL; Neutrophils % (auto) 59.2 % (37.0-80.0); Nucleated Red Blood Cells % 0.7 %; Platelet Count (auto) 258 10^3/uL (140-450); Red Cell Distribution Width 15.9 % (11.8-14.3); White Blood Cell 11.4 10^3/uL (4.4-10.8)
[2016-12-31 05:42] LABS: BUN/Creatinine Ratio 9.6; Calcium 7.8 mg/dL (8.5-10.1); Magnesium 2.3 mg/dL (1.6-2.6); Potassium 4.6 mmol/L (3.5-5.1)
[2016-12-31] MEDS: SODIUM CHLOR 0.9% PF (SALINE LOCK) 10ML VIAL IV SCH ×3 (05:59→20:51)
[2016-12-31] MEDS: ACCU-CHEK COMFORT CURVE STRIP VI SCH ×4 (06:00→20:56)
[2016-12-31] MEDS: InsuLIN REG 1unit/0.01ml Soln (100units/ml) SC SCH ×4 (06:02→20:56)
[2016-12-31] MEDS: cefTRIAXone 1GM/50ML D5W 50 ML IV SCH (08:59)
[2016-12-31] MEDS: DOCUSATE SOD 100 MG CAP PO SCH ×2 (10:21→20:49)
[2016-12-31] MEDS: CLOPIDOGREL BISULFATE 75 MG TAB PO SCH (10:21)
[2016-12-31] MEDS: PANTOPRAZOLE 40 MG TAB PO SCH ×2 (10:21→20:49)
[2016-12-31] MEDS: AZITHROMYCIN 500MG/ 250ML 250 ML IV SCH (10:21)
[2016-12-31] MEDS: FOLIC ACID 1 MG TAB PO SCH (10:21)
[2016-12-31] MEDS: LEVETIRACETAM 500 MG TAB PO SCH (10:21)
[2016-12-31] MEDS: BENAZEPRIL HCL 10 MG TAB PO SCH ×2 (10:22→20:51)
[2016-12-31] MEDS: METOPROLOL TARTRATE 25 MG TAB PO SCH (10:22)
[2016-12-31] MEDS ORDERED: CARVEDILOL 3.125 MG TAB PO ONE (11:00)
[2016-12-31 14:55] VITALS: BP 142/92
[2016-12-31] MEDS ORDERED: IOHEXOL 350 MG/ML 100ML IJ ONE (16:36)
[2016-12-31 17:04] VITALS: BP 155/97
[2016-12-31] MEDS: PHENYTOIN SODIUM 100 MG CAP PO SCH (17:52)
[2016-12-31 19:13] VITALS: BP 155/97
[2016-12-31] MEDS: ATORVASTATIN 20 MG TAB PO SCH (20:49)
[2016-12-31] MEDS: CARVEDILOL 3.125 MG TAB PO SCH (20:52)
[2016-12-31 21:45] VITALS: BP 169/103
[2017-01-01 05:00] VITALS: BP 166/111
[2017-01-01] MEDS: IPRATROPIUM BROM 0.5 MG/2.5ML INH SOL NEB SCH ×4 (05:56→19:34)
[2017-01-01 06:08] LABS: Basophils # (auto) 0.1 uL; Basophils % (auto) 0.6 % (0.0-2.0); Eosinophils # (auto) 0.7 uL; Hematocrit 32.7 % (41.0-53.0); Lymphocytes # (auto) 2.4 uL; Lymphocytes % (auto) 21.9 % (10.0-50.0); Mean Corpuscular Hemoglobin 32.1 pg (28.0-32.0); Mean Corpuscular Hgb Conc. 33.7 g/dL (32.0-36.0); Monocytes # (auto) 0.8 uL; Monocytes % (auto) 7.5 % (0.0-12.0); Nucleated Red Blood Cells % 0.4 %; Platelet Count (auto) 271 10^3/uL (140-450); Red Cell Distribution Width 16.1 % (11.8-14.3); White Blood Cell 10.9 10^3/uL (4.4-10.8)
[2017-01-01] MEDS: ACCU-CHEK COMFORT CURVE STRIP VI SCH ×4 (06:18→22:00)
[2017-01-01] MEDS: SODIUM CHLOR 0.9% PF (SALINE LOCK) 10ML VIAL IV SCH ×3 (06:18→22:00)
[2017-01-01] MEDS: InsuLIN REG 1unit/0.01ml Soln (100units/ml) SC SCH ×4 (06:18→22:00)
[2017-01-01 06:26] LABS: Calcium 7.5 mg/dL (8.5-10.1)
[2017-01-01 06:38] LABS: BUN/Creatinine Ratio 9.8
[2017-01-01 06:56] LABS: Potassium 5.7 mmol/L (3.5-5.1)
[2017-01-01 09:00] VITALS: BP 163/97
[2017-01-01] MEDS: BENAZEPRIL HCL 10 MG TAB PO SCH ×2 (10:09→22:00)
[2017-01-01] MEDS: FOLIC ACID 1 MG TAB PO SCH (10:09)
[2017-01-01] MEDS: PANTOPRAZOLE 40 MG TAB PO SCH ×2 (10:09→22:00)
[2017-01-01] MEDS: cefTRIAXone 1GM/50ML D5W 50 ML IV SCH (10:09)
[2017-01-01] MEDS: DOCUSATE SOD 100 MG CAP PO SCH ×2 (10:10→22:00)
[2017-01-01] MEDS: CLOPIDOGREL BISULFATE 75 MG TAB PO SCH (10:10)
[2017-01-01] MEDS: LEVETIRACETAM 500 MG TAB PO SCH (10:10)
[2017-01-01] MEDS: CARVEDILOL 3.125 MG TAB PO SCH ×2 (10:11→22:00)
[2017-01-01] MEDS: AZITHROMYCIN 500MG/ 250ML 250 ML IV SCH (10:56)
[2017-01-01 13:00] VITALS: BP 148/69
[2017-01-01 16:53] VITALS: BP 165/96
[2017-01-01] MEDS: PHENYTOIN SODIUM 100 MG CAP PO SCH (18:08)
[2017-01-01 18:12] VITALS: BP 129/87
[2017-01-01 22:00] VITALS: BP 137/88
[2017-01-01] MEDS: ATORVASTATIN 20 MG TAB PO SCH (22:00)
[2017-01-02] MEDS: IPRATROPIUM BROM 0.5 MG/2.5ML INH SOL NEB SCH ×4 (00:38→19:12)
[2017-01-02 05:00] VITALS: BP 152/98
[2017-01-02 05:35] LABS: Basophils # (auto) 0.1 uL; Basophils % (auto) 0.7 % (0.0-2.0); Eosinophils # (auto) 0.5 uL; Eosinophils % (auto) 4.6 % (0.0-7.0); Hematocrit 33.8 % (41.0-53.0); Hemoglobin 11.3 g/dL (13.5-17.5); Lymphocytes # (auto) 2.1 uL; Lymphocytes % (auto) 19.7 % (10.0-50.0); Mean Corpuscular Hgb Conc. 33.5 g/dL (32.0-36.0); Mean Corpuscular Volume 95.6 fL (80.0-100.0); Monocytes # (auto) 0.8 uL; Monocytes % (auto) 7.4 % (0.0-12.0); Neutrophils # (auto) 7.3 uL; Neutrophils % (auto) 67.6 % (37.0-80.0); Nucleated Red Blood Cells % 0.4 %; Platelet Count (auto) 265 10^3/uL (140-450); White Blood Cell 10.8 10^3/uL (4.4-10.8)
[2017-01-02 05:49] LABS: BUN/Creatinine Ratio 10.2; Calcium 7.8 mg/dL (8.5-10.1); Potassium 4.8 mmol/L (3.5-5.1)
[2017-01-02] MEDS: SODIUM CHLOR 0.9% PF (SALINE LOCK) 10ML VIAL IV SCH ×3 (06:00→22:51)
[2017-01-02] MEDS: ACCU-CHEK COMFORT CURVE STRIP VI SCH ×4 (06:41→22:00)
[2017-01-02] MEDS: InsuLIN REG 1unit/0.01ml Soln (100units/ml) SC SCH ×3 (06:41→22:00)
[2017-01-02 08:14] VITALS: BP 155/95
[2017-01-02] MEDS: DOCUSATE SOD 100 MG CAP PO SCH ×2 (10:57→22:18)
[2017-01-02] MEDS: cefTRIAXone 1GM/50ML D5W 50 ML IV SCH (10:57)
[2017-01-02] MEDS: PANTOPRAZOLE 40 MG TAB PO SCH ×2 (10:58→22:18)
[2017-01-02] MEDS: BENAZEPRIL HCL 10 MG TAB PO SCH ×2 (10:58→22:20)
[2017-01-02] MEDS: FOLIC ACID 1 MG TAB PO SCH (10:58)
[2017-01-02] MEDS: LEVETIRACETAM 500 MG TAB PO SCH (10:58)
[2017-01-02] MEDS: CLOPIDOGREL BISULFATE 75 MG TAB PO SCH (10:59)
[2017-01-02] MEDS: AZITHROMYCIN 500MG/ 250ML 250 ML IV SCH (10:59)
[2017-01-02] MEDS: CARVEDILOL 3.125 MG TAB PO SCH ×2 (10:59→22:20)
[2017-01-02 13:35] VITALS: BP 133/76
[2017-01-02 16:23] VITALS: BP 122/74
[2017-01-02] MEDS: PHENYTOIN SODIUM 100 MG CAP PO SCH (17:37)
[2017-01-02] MEDS: ATORVASTATIN 20 MG TAB PO SCH (22:18)
[2017-01-02 22:34] VITALS: BP 116/71
[2017-01-03] MEDS: IPRATROPIUM BROM 0.5 MG/2.5ML INH SOL NEB SCH ×3 (00:43→20:13)
[2017-01-03 05:40] VITALS: BP 154/90
[2017-01-03 06:44] LABS: Basophils # (auto) 0.1 uL; Basophils % (auto) 0.6 % (0.0-2.0); Eosinophils # (auto) 0.5 uL; Eosinophils % (auto) 4.5 % (0.0-7.0); Hematocrit 31.3 % (41.0-53.0); Hemoglobin 10.5 g/dL (13.5-17.5); Lymphocytes # (auto) 2.4 uL; Mean Corpuscular Hemoglobin 32.3 pg (28.0-32.0); Mean Corpuscular Hgb Conc. 33.7 g/dL (32.0-36.0); Mean Corpuscular Volume 95.8 fL (80.0-100.0); Mean Platelet Volume 8.2 fL (6.9-10.8); Monocytes # (auto) 0.9 uL; Monocytes % (auto) 8.9 % (0.0-12.0); Neutrophils # (auto) 6.6 uL; Nucleated Red Blood Cells % 0.2 %; Platelet Count (auto) 264 10^3/uL (140-450); Red Cell Distribution Width 16.3 % (11.8-14.3); White Blood Cell 10.4 10^3/uL (4.4-10.8)
[2017-01-03 06:46] LABS: Potassium 5.4 mmol/L (3.5-5.1)
[2017-01-03 06:54] LABS: BUN/Creatinine Ratio 11.9; Calcium 8.4 mg/dL (8.5-10.1)
[2017-01-03] MEDS: InsuLIN REG 1unit/0.01ml Soln (100units/ml) SC SCH ×4 (07:00→22:28)
[2017-01-03] MEDS: ACCU-CHEK COMFORT CURVE STRIP VI SCH ×4 (07:00→22:17)
[2017-01-03] MEDS: SODIUM CHLOR 0.9% PF (SALINE LOCK) 10ML VIAL IV SCH ×3 (08:05→22:17)
[2017-01-03 09:00] VITALS: BP 156/94
[2017-01-03] MEDS ORDERED: EPOETIN ALFA 10,000 UNIT/1 ML VIAL IV ONE (09:00)
[2017-01-03] MEDS: cefTRIAXone 1GM/50ML D5W 50 ML IV SCH (09:54)
[2017-01-03] MEDS: DOCUSATE SOD 100 MG CAP PO SCH ×2 (09:55→22:11)
[2017-01-03] MEDS: AZITHROMYCIN 500MG/ 250ML 250 ML IV SCH (09:55)
[2017-01-03] MEDS: CLOPIDOGREL BISULFATE 75 MG TAB PO SCH (09:55)
[2017-01-03] MEDS: PANTOPRAZOLE 40 MG TAB PO SCH ×2 (09:55→22:13)
[2017-01-03] MEDS: LEVETIRACETAM 500 MG TAB PO SCH (09:55)
[2017-01-03] MEDS: FOLIC ACID 1 MG TAB PO SCH (09:55)
[2017-01-03] MEDS: CARVEDILOL 3.125 MG TAB PO SCH ×3 (10:00→23:12)
[2017-01-03] MEDS: BENAZEPRIL HCL 10 MG TAB PO SCH ×2 (10:00→22:13)
[2017-01-03 13:00] VITALS: BP 152/92
[2017-01-03 16:21] VITALS: BP 124/82
[2017-01-03 17:00] VITALS: BP 125/79
[2017-01-03] MEDS: PHENYTOIN SODIUM 100 MG CAP PO SCH (17:15)
[2017-01-03 22:00] VITALS: BP 116/81
[2017-01-03] MEDS: ATORVASTATIN 20 MG TAB PO SCH (22:11)
[2017-01-04] MEDS: IPRATROPIUM BROM 0.5 MG/2.5ML INH SOL NEB SCH ×6 (00:54→19:29)
[2017-01-04 01:42] VITALS: BP 115/70
[2017-01-04 05:00] VITALS: BP 131/79
[2017-01-04 05:40] LABS: Basophils # (auto) 0.1 uL; Basophils % (auto) 0.8 % (0.0-2.0); Eosinophils # (auto) 0.3 uL; Eosinophils % (auto) 2.2 % (0.0-7.0); Hematocrit 31.2 % (41.0-53.0); Hemoglobin 10.4 g/dL (13.5-17.5); Lymphocytes # (auto) 2.2 uL; Lymphocytes % (auto) 18.5 % (10.0-50.0); Mean Corpuscular Hemoglobin 31.8 pg (28.0-32.0); Mean Corpuscular Hgb Conc. 33.5 g/dL (32.0-36.0); Mean Corpuscular Volume 94.9 fL (80.0-100.0); Mean Platelet Volume 7.5 fL (6.9-10.8); Monocytes # (auto) 0.8 uL; Monocytes % (auto) 6.4 % (0.0-12.0); Neutrophils # (auto) 8.7 uL; Neutrophils % (auto) 72.1 % (37.0-80.0); Nucleated Red Blood Cells % 0.2 %; Platelet Count (auto) 245 10^3/uL (140-450); Red Cell Distribution Width 16.5 % (11.8-14.3); White Blood Cell 12.1 10^3/uL (4.4-10.8)
[2017-01-04 05:54] LABS: Prothrombin Time 10.9 sec (9.37-12.3)
[2017-01-04 06:05] LABS: Potassium 4.3 mmol/L (3.5-5.1)
[2017-01-04] MEDS: ACCU-CHEK COMFORT CURVE STRIP VI SCH ×4 (06:16→22:40)
[2017-01-04] MEDS: SODIUM CHLOR 0.9% PF (SALINE LOCK) 10ML VIAL IV SCH ×3 (06:23→22:40)
[2017-01-04] MEDS: InsuLIN REG 1unit/0.01ml Soln (100units/ml) SC SCH ×4 (06:24→22:40)
[2017-01-04 09:00] VITALS: BP_SYST 131; BP_SYST 148; BP_DIAS 66; BP_DIAS 72
[2017-01-04] MEDS: cefTRIAXone 1GM/50ML D5W 50 ML IV SCH (09:18)
[2017-01-04] MEDS: AZITHROMYCIN 500MG/ 250ML 250 ML IV SCH (09:19)
[2017-01-04] MEDS: FOLIC ACID 1 MG TAB PO SCH (09:19)
[2017-01-04] MEDS: DOCUSATE SOD 100 MG CAP PO SCH ×2 (09:19→22:40)
[2017-01-04] MEDS: PANTOPRAZOLE 40 MG TAB PO SCH ×2 (09:20→22:40)
[2017-01-04] MEDS: LEVETIRACETAM 500 MG TAB PO SCH (09:20)
[2017-01-04] MEDS: CARVEDILOL 3.125 MG TAB PO SCH (09:20)
[2017-01-04] MEDS: BENAZEPRIL HCL 10 MG TAB PO SCH ×2 (09:21→22:40)
[2017-01-04 13:00] VITALS: BP 123/97
[2017-01-04 17:00] VITALS: BP 144/92
[2017-01-04] MEDS: PHENYTOIN SODIUM 100 MG CAP PO SCH (18:01)
[2017-01-04 21:42] VITALS: BP 135/87
[2017-01-04] MEDS: ATORVASTATIN 20 MG TAB PO SCH (22:40)
[2017-01-05 05:08] VITALS: BP 127/74
[2017-01-05] MEDS: IPRATROPIUM BROM 0.5 MG/2.5ML INH SOL NEB SCH ×3 (05:55→11:48)
[2017-01-05] MEDS: SODIUM CHLOR 0.9% PF (SALINE LOCK) 10ML VIAL IV SCH ×3 (06:00→21:54)
[2017-01-05] MEDS: InsuLIN REG 1unit/0.01ml Soln (100units/ml) SC SCH ×4 (07:00→21:54)
[2017-01-05] MEDS: ACCU-CHEK COMFORT CURVE STRIP VI SCH ×4 (07:00→21:54)
[2017-01-05] MEDS ORDERED: SODIUM CHLORIDE LOCK 30 ML ONE (08:15)
[2017-01-05] MEDS ORDERED: EPINEPHrine HCL 1 MG/1 ML AMP ONE (08:15)
[2017-01-05] MEDS ORDERED: LIDOCAINE 2%HCL (LOCAL ANESTH.) INJ 20ML MDV ONE (08:15)
[2017-01-05] MEDS ORDERED: LIDOCAINE HCL 2% TOP JELLY 5ML TOP ONE (08:16)
[2017-01-05 09:00] VITALS: BP 152/90
[2017-01-05] MEDS: cefTRIAXone 1GM/50ML D5W 50 ML IV SCH (09:01)
[2017-01-05] MEDS: BENAZEPRIL HCL 10 MG TAB PO SCH ×2 (10:00→21:51)
[2017-01-05] MEDS: CARVEDILOL 3.125 MG TAB PO SCH ×2 (10:00→21:53)
[2017-01-05] MEDS: DOCUSATE SOD 100 MG CAP PO SCH ×2 (10:00→21:51)
[2017-01-05] MEDS: PANTOPRAZOLE 40 MG TAB PO SCH ×2 (10:00→21:54)
[2017-01-05] MEDS: FOLIC ACID 1 MG TAB PO SCH (10:00)
[2017-01-05] MEDS: LEVETIRACETAM 500 MG TAB PO SCH (10:54)
[2017-01-05] MEDS: AZITHROMYCIN 500MG/ 250ML 250 ML IV SCH (10:54)
[2017-01-05 13:00] VITALS: BP 140/89
[2017-01-05] MEDS ORDERED: IPRATROPIUM BROM 0.5 MG/2.5ML INH SOL ONE (13:54)
[2017-01-05] MEDS ORDERED: IPRATROPIUM BROM 0.5 MG/2.5ML INH SOL NEB ONE (14:00)
[2017-01-05] MEDS ORDERED: GLYCOPYRROLATE 0.2 MG/ML 1ML VIAL ONE (14:59)
[2017-01-05] MEDS ORDERED: HYDROmorphone HCL 2 MG/ML VL ONE (15:42)
[2017-01-05] MEDS: MIDAZOLAM HCL 5 MG/ML-1ML VIAL ONE ×3 (15:45→15:56)
[2017-01-05] MEDS ORDERED: HYDROmorphone HCL 2 MG/ML VL IV ONE ×2 (15:47→16:07)
[2017-01-05] MEDS ORDERED: GLYCOPYRROLATE 0.2 MG/ML 1ML VIAL IV ONE (15:59)
[2017-01-05] MEDS ORDERED: MIDAZOLAM HCL 5 MG/ML-1ML VIAL IV ONE (16:07)
[2017-01-05 17:00] VITALS: BP 152/90
[2017-01-05] MEDS: PHENYTOIN SODIUM 100 MG CAP PO SCH (18:44)
[2017-01-05] MEDS: ATORVASTATIN 20 MG TAB PO SCH (21:52)
[2017-01-05 22:00] VITALS: BP 149/91
[2017-01-06] MEDS: IPRATROPIUM BROM 0.5 MG/2.5ML INH SOL NEB SCH ×6 (01:09→18:34)
[2017-01-06 05:00] VITALS: BP 152/86
[2017-01-06 05:50] LABS: Basophils # (auto) 0.1 uL; Basophils % (auto) 1.2 % (0.0-2.0); Eosinophils # (auto) 0.4 uL; Eosinophils % (auto) 3.9 % (0.0-7.0); Hematocrit 29.7 % (41.0-53.0); Hemoglobin 9.9 g/dL (13.5-17.5); Lymphocytes % (auto) 18.9 % (10.0-50.0); Mean Corpuscular Hemoglobin 32.6 pg (28.0-32.0); Mean Corpuscular Hgb Conc. 33.4 g/dL (32.0-36.0); Mean Corpuscular Volume 97.4 fL (80.0-100.0); Mean Platelet Volume 7.8 fL (6.9-10.8); Monocytes # (auto) 0.9 uL; Monocytes % (auto) 8.5 % (0.0-12.0); Neutrophils % (auto) 67.5 % (37.0-80.0); Nucleated Red Blood Cells % 0.1 %; Platelet Count (auto) 275 10^3/uL (140-450); Red Cell Distribution Width 16.4 % (11.8-14.3); White Blood Cell 10.3 10^3/uL (4.4-10.8)
[2017-01-06 06:10] LABS: BUN/Creatinine Ratio 11.1; Calcium 8.1 mg/dL (8.5-10.1); Potassium 5.1 mmol/L (3.5-5.1)
[2017-01-06] MEDS: InsuLIN REG 1unit/0.01ml Soln (100units/ml) SC SCH ×4 (06:37→22:17)
[2017-01-06] MEDS: ACCU-CHEK COMFORT CURVE STRIP VI SCH ×4 (06:37→22:19)
[2017-01-06] MEDS: SODIUM CHLOR 0.9% PF (SALINE LOCK) 10ML VIAL IV SCH ×3 (06:37→22:19)
[2017-01-06 09:00] VITALS: BP 160/96
[2017-01-06] MEDS: PANTOPRAZOLE 40 MG TAB PO SCH ×2 (09:16→22:19)
[2017-01-06] MEDS: BENAZEPRIL HCL 10 MG TAB PO SCH ×2 (09:17→22:19)
[2017-01-06] MEDS: FOLIC ACID 1 MG TAB PO SCH (09:17)
[2017-01-06] MEDS: CARVEDILOL 3.125 MG TAB PO SCH ×2 (09:17→22:18)
[2017-01-06] MEDS: DOCUSATE SOD 100 MG CAP PO SCH ×2 (09:19→22:18)
[2017-01-06] MEDS: LEVETIRACETAM 500 MG TAB PO SCH (09:23)
[2017-01-06] MEDS: AZITHROMYCIN 500MG/ 250ML 250 ML IV SCH (09:24)
[2017-01-06] MEDS: cefTRIAXone 1GM/50ML D5W 50 ML IV SCH (09:24)
[2017-01-06] MEDS ORDERED: SODIUM CHL 0.9% 1000 ML BAG XX ONE (10:00)
[2017-01-06 13:00] VITALS: BP 157/95
[2017-01-06 17:00] VITALS: BP 136/100
[2017-01-06] MEDS: PHENYTOIN SODIUM 100 MG CAP PO SCH (17:23)
[2017-01-06 20:25] VITALS: BP 136/100
[2017-01-06 22:00] VITALS: BP 126/83
[2017-01-06] MEDS: ATORVASTATIN 20 MG TAB PO SCH (22:17)
[2017-01-07 05:00] VITALS: BP 158/91
[2017-01-07] MEDS: IPRATROPIUM BROM 0.5 MG/2.5ML INH SOL NEB SCH ×3 (05:49→19:08)
[2017-01-07] MEDS: InsuLIN REG 1unit/0.01ml Soln (100units/ml) SC SCH ×4 (06:20→22:00)
[2017-01-07] MEDS: SODIUM CHLOR 0.9% PF (SALINE LOCK) 10ML VIAL IV SCH ×3 (06:20→22:32)
[2017-01-07] MEDS: ACCU-CHEK COMFORT CURVE STRIP VI SCH ×4 (06:21→22:00)
[2017-01-07 09:00] VITALS: BP 158/100
[2017-01-07] MEDS: cefTRIAXone 1GM/50ML D5W 50 ML IV SCH (09:26)
[2017-01-07] MEDS: BENAZEPRIL HCL 10 MG TAB PO SCH ×2 (09:27→22:33)
[2017-01-07] MEDS: FOLIC ACID 1 MG TAB PO SCH (09:27)
[2017-01-07] MEDS: PANTOPRAZOLE 40 MG TAB PO SCH ×2 (09:27→22:34)
[2017-01-07] MEDS: LEVETIRACETAM 500 MG TAB PO SCH (09:27)
[2017-01-07] MEDS: DOCUSATE SOD 100 MG CAP PO SCH (09:27)
[2017-01-07] MEDS: CARVEDILOL 3.125 MG TAB PO SCH ×2 (09:28→22:34)
[2017-01-07] MEDS: AZITHROMYCIN 500MG/ 250ML 250 ML IV SCH (10:36)
[2017-01-07 13:00] VITALS: BP 150/91
[2017-01-07 17:00] VITALS: BP 146/91
[2017-01-07] MEDS: PHENYTOIN SODIUM 100 MG CAP PO SCH (17:44)
[2017-01-07] MEDS ORDERED: LEVOFLOXACIN 500 MG TAB PO ONE (19:45)
[2017-01-07 22:00] VITALS: BP 144/76
[2017-01-07] MEDS: metroNIDAZOLE 500 MG TAB PO SCH (22:33)
[2017-01-07] MEDS: ATORVASTATIN 20 MG TAB PO SCH (22:33)
[2017-01-08 05:00] VITALS: BP 151/78
[2017-01-08 05:39] LABS: Basophils # (auto) 0.1 uL; Eosinophils # (auto) 0.4 uL; Eosinophils % (auto) 4.3 % (0.0-7.0); Hematocrit 27.8 % (41.0-53.0); Hemoglobin 9.5 g/dL (13.5-17.5); Lymphocytes # (auto) 2.2 uL; Lymphocytes % (auto) 25.5 % (10.0-50.0); Mean Corpuscular Hemoglobin 32.8 pg (28.0-32.0); Mean Corpuscular Hgb Conc. 34.1 g/dL (32.0-36.0); Mean Corpuscular Volume 96.1 fL (80.0-100.0); Mean Platelet Volume 7.5 fL (6.9-10.8); Monocytes # (auto) 0.8 uL; Monocytes % (auto) 9.6 % (0.0-12.0); Neutrophils # (auto) 5.2 uL; Neutrophils % (auto) 59.6 % (37.0-80.0); Nucleated Red Blood Cells % 0.1 %; Platelet Count (auto) 280 10^3/uL (140-450); Red Cell Distribution Width 16.7 % (11.8-14.3); White Blood Cell 8.8 10^3/uL (4.4-10.8)
[2017-01-08 06:09] LABS: BUN/Creatinine Ratio 10.1; Calcium 7.8 mg/dL (8.5-10.1)
[2017-01-08 06:13] LABS: Potassium 5.9 mmol/L (3.5-5.1)
[2017-01-08] MEDS: SODIUM CHLOR 0.9% PF (SALINE LOCK) 10ML VIAL IV SCH ×2 (06:40→13:36)
[2017-01-08] MEDS: metroNIDAZOLE 500 MG TAB PO SCH ×2 (06:41→13:35)
[2017-01-08] MEDS: InsuLIN REG 1unit/0.01ml Soln (100units/ml) SC SCH ×2 (06:47→11:54)
[2017-01-08] MEDS: ACCU-CHEK COMFORT CURVE STRIP VI SCH ×2 (06:48→11:54)
[2017-01-08] MEDS: IPRATROPIUM BROM 0.5 MG/2.5ML INH SOL NEB SCH ×3 (07:19→13:53)
[2017-01-08 08:58] VITALS: BP 150/87
[2017-01-08] MEDS: FOLIC ACID 1 MG TAB PO SCH (10:28)
[2017-01-08] MEDS: PANTOPRAZOLE 40 MG TAB PO SCH (10:28)
[2017-01-08] MEDS: LEVETIRACETAM 500 MG TAB PO SCH (10:28)
[2017-01-08] MEDS: CARVEDILOL 3.125 MG TAB PO SCH (10:31)
[2017-01-08] MEDS: BENAZEPRIL HCL 10 MG TAB PO SCH (10:31)
[2017-01-08 13:14] VITALS: BP 152/89
[2017-01-08] MEDS ORDERED: SODIUM POLYSTYRENE SULF 15GM/60ML SUSP PR ONE (14:15)
[2017-01-08] MEDS ORDERED: SODIUM POLYSTYRENE SULF 15GM/60ML SUSP PO ONE (14:30)
[2017-01-08 17:50] VITALS: BP 139/85
[2017-01-08] MEDS ORDERED: LEVOFLOXACIN 250 MG TAB PO SCH (20:00)
[2017-01-08] MEDS ORDERED: LEVOFLOXACIN 500 MG TAB PO SCH (22:00)
== END 2017-01-08 17:05 | disposition home or self-care (01) | DRG 720 ==
LOC: EDBD 11:46 → ER 11:46 → TELE 11:47 → ICU CENTRL 23:44 → DOU IN ICU 12-29 00:01 → TELE-WESTW 12-31 13:37
PROVIDERS: ADMIT Internal Medicine; ATTEND Family Medicine
PROC: 30233N1 Transfusion of Nonautologous Red Blood Cells into Peripheral Vein, Percutaneous Approach (ICD-10-PCS; 2016-12-29)
PROC: 0BBC8ZX Excision of Right Upper Lung Lobe, Via Natural or Artificial Opening Endoscopic, Diagnostic (ICD-10-PCS; 2017-01-05)
PROC: 0BD48ZX Extraction of Right Upper Lobe Bronchus, Via Natural or Artificial Opening Endoscopic, Diagnostic (ICD-10-PCS; principal; 2017-01-05 15:39)
DX: A41.9 Sepsis, unspecified organism (principal); I21.A1 Myocardial infarction type 2; J96.90 Respiratory failure, unspecified, unspecified whether with hypoxia or hypercapnia; I13.2 Hypertensive heart and chronic kidney disease with heart failure and with stage 5 chronic kidney disease, or end stage renal disease; E44.0 Moderate protein-calorie malnutrition; N18.6 End stage renal disease; J18.9 Pneumonia, unspecified organism; F03.90 Unspecified dementia, unspecified severity, without behavioral disturbance, psychotic disturbance, mood disturbance, and anxiety; I50.42 Chronic combined systolic (congestive) and diastolic (congestive) heart failure; E87.1 Hypo-osmolality and hyponatremia; J44.0 Chronic obstructive pulmonary disease with (acute) lower respiratory infection; Z99.2 Dependence on renal dialysis; D63.1 Anemia in chronic kidney disease; E11.21 Type 2 diabetes mellitus with diabetic nephropathy; E11.22 Type 2 diabetes mellitus with diabetic chronic kidney disease; E11.65 Type 2 diabetes mellitus with hyperglycemia; E87.5 Hyperkalemia; F17.210 Nicotine dependence, cigarettes, uncomplicated; G40.909 Epilepsy, unspecified, not intractable, without status epilepticus; I25.10 Atherosclerotic heart disease of native coronary artery without angina pectoris; K52.9 Noninfective gastroenteritis and colitis, unspecified; N25.81 Secondary hyperparathyroidism of renal origin; K59.00 Constipation, unspecified; F41.9 Anxiety disorder, unspecified; R91.8 Other nonspecific abnormal finding of lung field; Z79.02 Long term (current) use of antithrombotics/antiplatelets; Z82.49 Family history of ischemic heart disease and other diseases of the circulatory system; Z86.73 Personal history of transient ischemic attack (TIA), and cerebral infarction without residual deficits; Z71.3 Dietary counseling and surveillance; Z95.5 Presence of coronary angioplasty implant and graft; Z95.1 Presence of aortocoronary bypass graft; Z68.21 Body mass index [BMI] 21.0-21.9, adult; Z79.899 Other long term (current) drug therapy
CPT/HCPCS: 31623; 36415; 36430; 71010; 71020; 71275; 80048; 80053; 80061; 80185; 80307; 81001; 82270; 82378; 82550; 82728; 82962; 83036; 83540; 83550; 83735; 83880; 84132; 84484; 85014; 85018; 85025; 85045; 85379; 85610; 85652; 85730; 86141; 86850; 86900; 86901; 86920; 87040; 87070; 87081; 87086; 87205; 87400; 87493; 90935; 93005; 94640; 94761; 96374; 96375; 97110; 97116; 97530; J0171; J0696; J0885; J1642; J1815; J2250; J2543